=== PATIENT | male | born 1960 | race Caucasian/White ===

== ENCOUNTER → 2017-03-10 | Outpatient (CLI) | payer BC ==
[~2017-03-10] MED LIST: ACET-1256 PO; ASPEC81 PO; ASPI81TA28 PO; CRAN1TAB PO; GLC500 PO; IBUP-1050 PO; INSDGIPEN SQ; INSU100I2 SQ; LSN25 PO; METF-384 PO; MULTTAB58 PO; OMEG435C PO; ZLF/50 PO
[2017-03-10 13:12] LABS: ALT/SGPT 56 U/L (12-78); AST/SGOT 25 U/L (15-37); BLOOD UREA NITROGEN 20 mg/dl (7-18); CALCIUM 9.1 mg/dl (8.5-10.1); CARBON DIOXIDE 25 mmol/L (21-32); CHLORIDE 108 mmol/L (98-107); GLUCOSE 228 mg/dl (70-99); POTASSIUM 4.2 mmol/L (3.5-5.1); SODIUM 143 mmol/L (136-145)
[2017-03-10 13:18] LABS: ALKALINE PHOSPHATASE 105 U/L (45-117); CHOLESTEROL 217 mg/dl (0-200); CHOLESTEROL/HDL RATIO 5.3; HDL CHOLESTEROL 41 mg/dl; LDL CHOLESTEROL CALCULATED 128 mg/dl; PROSTATE SPECIFIC ANTIGEN 0.545 ng/ml (0.000-4.000); TRIGLYCERIDES 239 mg/dl (0-150); VERY LOW DENSITY LIPOPROT CALC 48 mg/dl
[2017-03-10 13:19] LABS: URINE APPEARANCE CLEAR (CLEAR); URINE BILIRUBIN NEG (NEG); URINE COLOR YELLOW; URINE EPITHELIAL CELL AUTO 0-5 /lpf (0-5); URINE NITRITE NEG (NEG); URINE SPECIFIC GRAVITY 1.036 (1.000-1.030); UROBILINOGEN NEG (NEG)
[2017-03-10 13:24] LABS: ESTIMATED AVERAGE GLUCOSE 229 mg/dl; HA1C FLAG Normal (Normal); MANUAL MICROSCOPIC REQUIRED? NO; REVIEW REQ? NO
[2017-03-10 13:40] LABS: RATIO 58.9 mcg/mg (0-30.0)
--- NOTE | 2017-03-14 12:57 | CODING QUERY MEDICAL NECESSITY ---
SUPPORTING DIAGNOSIS NEEDED A supporting diagnosis is required for the test/procedure performed on this patient in order for us to be reimbursed by the patient's insurance. Please provide a supporting diagnosis for the following test/procedure listed below next to the test name along with your signature. *If there is no additional diagnosis for this patient that would support the following test/procedure please document that below next to the test/procedure. Test(s)/Procedure(s) that require a supporting diagnosis: * PSA DIAGNOSIS: Provider Signature: Date: Thank you Flakita Emer[employer] Information Management Once completed, please kindly fax back to [phone] For questions please call [phone]
== END | disposition home or self-care (01) ==
LOC: C.LABBC 09:52
PROVIDERS: ATTEND Internal Medicine
DX: E11.9 Type 2 diabetes mellitus without complications (principal); K76.0 Fatty (change of) liver, not elsewhere classified; R39.9 Unspecified symptoms and signs involving the genitourinary system; E78.5 Hyperlipidemia, unspecified; Z12.5 Encounter for screening for malignant neoplasm of prostate

== ENCOUNTER → 2017-03-23 | Outpatient (CLI) | payer BC ==
[~2017-03-23] MED LIST changes: -ASPI81TA28 PO; -INSDGIPEN SQ; +INSU100I2 INJ; -INSU100I2 SQ; -LSN25 PO; -METF-384 PO; +OPTIRAY 320 IV PRN; -ZLF/50 PO
--- NOTE | 2017-03-23 17:01 | DIAGNOSTIC IMAGING REPORT ---
CT SCAN OF THE ABDOMEN AND PELVIS WITH IV CONTRAST CLINICAL HISTORY: Generalized abdominal pain. COMPARISON STUDY: Abdominal CT dated 10/29/2006. TECHNIQUE: Following the IV administration of 90 cc of Optiray 320, CT scan of the abdomen and pelvis is performed from the lung bases to the proximal femora. Images are reviewed in the axial, sagittal, and coronal planes. IV contrast was administered without complication. Automated dose control exposure was utilized. CT DOSE: 931.57 mGy.cm FINDINGS: Lung bases: The heart is top normal in size and without pericardial effusion. The lung bases are clear noting bibasilar atelectasis. There is a tiny hiatal hernia. Liver: The contrast-enhanced liver is top normal in size measuring 18 cm in length. The liver demonstrates diffusely diminished attenuation consistent with hepatic steatosis. There is no intrahepatic biliary ductal dilatation. The hepatic veins and portal veins are patent. Gallbladder: There are large calcified gallstones. There is no CT evidence of acute cholecystitis. Spleen: Normal in size and attenuation. Pancreas: Unremarkable. Adrenal glands: Unremarkable. Kidneys: The contrast enhanced kidneys are normal in size and without hydronephrosis. Numerous foci of cortical scarring are identified in the left kidney. The kidneys enhance symmetrically. A 1.5 cm exophytic cyst arises from the interpolar right kidney. Additional subcentimeter cortical hypodensities also likely represent cysts but are too small for definitive characterization. There is linear/irregular calcification identified in the upper pole the right kidney which measures up to 2.2 cm. This may be contained within a cyst or calyceal diverticulum. Abdominal vasculature: The abdominal aorta is normal in course and caliber. Bowel: The small bowel and colon are normal in course and caliber. There is mild colonic fecal retention. The appendix is well-visualized and normal. Peritoneum: There is no intraperitoneal free air or abdominal ascites. There is a fat-containing umbilical hernia. Foci of induration within the right abdominal wall may be related to subcutaneous injections. Lymphadenopathy: None. Pelvic viscera: The bladder, prostate, and seminal vesicles are normal as visualized. Surgical clips are noted along the spermatic cord bilaterally. Skeletal structures: No lytic or blastic lesions are seen. A hemangioma is noted in the body of L1. IMPRESSION: 1. There are no acute infectious or inflammatory findings in the abdomen or pelvis. 2. Hepatic steatosis. 3. Cholelithiasis without CT evidence of acute cholecystitis. 4. Multiple foci of cortical scarring are present in the left kidney. 5. A large irregular linear/branching calcification is identified in the upper pole of the right kidney. This may represent a nonobstructing kidney stone, and could be contained within a cyst/calyceal diverticulum. 6. Additional findings as above. Electronically signed by: Jhonatan Urrutia M.D. 03/23/2017 4:59 PM Dictated Date/Time: 03/23/2017 4:50 PM
== END | disposition home or self-care (01) ==
LOC: C.CTS 16:11
PROVIDERS: ATTEND Internal Medicine
DX: R10.9 Unspecified abdominal pain (principal)

== ENCOUNTER → 2017-03-31 | Outpatient (CLI) | payer BC ==
[~2017-03-31] MED LIST changes: -OPTIRAY 320 IV PRN
[2017-03-31 13:19] LABS: URINE APPEARANCE CLEAR (CLEAR); URINE BILIRUBIN NEG (NEG); URINE COLOR YELLOW; URINE NITRITE NEG (NEG); URINE PH 5.5 (4.5-7.5); URINE SPECIFIC GRAVITY 1.038 (1.000-1.030); UROBILINOGEN NEG (NEG)
[2017-03-31 13:22] LABS: MANUAL MICROSCOPIC REQUIRED? NO; REVIEW REQ? NO
== END | disposition home or self-care (01) ==
LOC: C.LABBC 10:14
PROVIDERS: ATTEND Internal Medicine
DX: R39.9 Unspecified symptoms and signs involving the genitourinary system (principal)

== ENCOUNTER → 2017-04-13 | Outpatient (CLI) | payer BC ==
--- NOTE | 2017-04-13 16:23 | DIAGNOSTIC IMAGING REPORT ---
RENAL ULTRASOUND CLINICAL HISTORY: Urinary symptom or sign. COMPARISON STUDY: CT of the abdomen and pelvis March 23, 2017. TECHNIQUE: Sonography of the kidneys and the urinary bladder was performed. FINDINGS: The right kidney measures 13.6 x 7.4 x 6.5 cm and the left measures 13.7 x 7.4 x 7.4 cm. There is no hydronephrosis. A 2 cm cyst is noted arising from the lower pole of the right kidney. Note is made of multifocal scarring within the left kidney. Echogenic foci with twinkle artifact within the upper pole of the left kidney correspond to the calcifications within a cyst or diverticulum shown on CT of March 23, 2017. The bladder is unremarkable. Both ureteral jets were identified. IMPRESSION: 1. No hydronephrosis. 2. Multifocal left renal scarring. 3. Calcifications within the upper pole of the left kidney which correspond to the calcifications within a cyst or calyceal diverticulum shown on CT of March 23, 2017. Electronically signed by: Suhas Nixon M.D. 04/13/2017 4:22 PM Dictated Date/Time: 04/13/2017 4:18 PM
== END | disposition home or self-care (01) ==
LOC: C.ULTR 15:41
PROVIDERS: ATTEND Internal Medicine
DX: R39.9 Unspecified symptoms and signs involving the genitourinary system (principal)

== ENCOUNTER 2017-08-20 22:56 | Emergency (ER) | payer BC ==
[~2017-08-20] VITALS: Ht 175.3 cm; Wt 105.9 kg
[~2017-08-20 22:56] MED LIST changes: -INSU100I2 INJ; +INSU100I2 SQ
[2017-08-20 22:57] VITALS: TEMP 36.5; Ht 175.3 cm; Wt 105.9 kg
[2017-08-20] MEDS ORDERED: KETOROLAC TROMETHAMINE 30 MG/ML VIAL IV STA (23:22)
[2017-08-20] MEDS ORDERED: SODIUM CHLORIDE 0.9% 1000ML 1,000 ML IV STA (23:22)
[2017-08-20] MEDS ORDERED: ONDANSETRON INJ 2 MG/ML 2 ML VIAL IV STA (23:22)
--- NOTE | 2017-08-20 23:39 | EMERGENCY ROOM VISIT NOTE ---
History Report prepared by Robinson: Vinayak Boss Under the Supervision of: Dr. Juan David Arrieta M.D. First contact with patient: 23:19 Chief Complaint: ABDOMINAL PAIN Stated Complaint: CHEST PAIN Nursing Triage Summary: Pt states he has felt ill all day, this evening developed increased abdominal pain that radiated into his chest with associated nausea. History of Present Illness The patient is a 57 year old male who presents to the Emergency Room with complaints of worsening abdominal pain for the past few days, though he has had similar pains for the past month. He currently rates his discomfort as a 5/10 in severity. The patient additionally is complaining of nausea and shortness of breath, though he denies any fevers, chills, cough, congestion, vomiting, and burning with urination. He states that he has seen his PCP, and he was instructed to follow up with a urologist, however he did not. He states that he has a history of a renal cyst, type 2 diabetes, and hypertension. He denies any history of prostate issues or any prostate symptoms such as weaker stream or frequency of urination. Additionally, the patient notes that he had hernia surgery recently. He states that he has had 2 bowel movements today, and they were normal without and any diarrhea, hematochezia, or melena. Source of History: patient Onset: few days ago Position: abdomen Symptom Intensity: 5/10 Timing: worsening Associated Symptoms: + SOB, + nausea, No fevers, No chills, No vomiting, No melena, No hematochezia, No diarrhea, No urinary symptoms Review of Systems See HPI for pertinent positives and negatives. A total of ten systems were reviewed and were otherwise negative. Past Medical & Surgical Medical Problems: (1) Diabetes (2) HTN (hypertension) (3) Kidney disease Family History Cancer Diabetes mellitus Gallbladder disease Heart disease Hypertension Kidney disease Kidney stones Social History Smoking Status: Never Smoker Alcohol Use: none Marital Status: Occupation Status: employed Current/Historical Medications Scheduled Aspirin (Aspirin Ec), 81 MG PO DAILY Cranberry (Vaccinium Macrocarp (Cranberry), 125 MG PO DAILY Insulin Glargine (Lantus Solostar), 20 UNITS SQ QAM Insulin Lispro (Human) (Humalog Kwikpen), 8 UNITS SQ AMHS Lisinopril (Lisinopril), 1 TAB PO QAM Metformin Hcl (Glucophage), 1,000 MG PO BID Multiple Vitamin (Multivitamin), 1 TAB PO DAILY [place]-3 Fatty Acids (Fish Oil Concentrate), 3 CAP PO BID Sertraline HCl (Sertraline HCl), 25 MG PO HS Allergies Coded Allergies: Peanut (Verified Allergy, Unknown, lethargic, GI upset, 08/21/17) Physical Exam Vital Signs Date Time Temp Pulse Resp B/P (MAP) Pulse Ox O2 Delivery O2 Flow Rate FiO2 08/21/17 03:51 78 18 136/87 97 08/21/17 03:35 65 08/21/17 01:06 65 18 137/78 98 Room Air 08/21/17 00:11 66 18 139/74 98 Room Air 08/20/17 23:12 61 08/20/17 22:57 36.5 77 18 171/103 93 Room Air Physical Exam GENERAL: Awake, alert, well-appearing, in no distress HENT: Normocephalic, atraumatic. Oropharynx unremarkable. EYES: Normal conjunctiva. Sclera non-icteric. NECK: Supple. No nuchal rigidity. FROM. No JVD. RESPIRATORY: Clear to auscultation. CARDIAC: Regular rate, normal rhythm. Extremities warm and well perfused. Pulses equal. ABDOMEN: Mild suprapubic tenderness to palpation. No peritoneal signs. Soft, non -distended. No rebound or guarding. No masses. RECTAL: Deferred. MUSCULOSKELETAL: Chest examination reveals no tenderness. The back is symmetrical on inspection without obvious abnormality. There is no CVA tenderness to palpation. No joint edema. LOWER EXTREMITIES: Calves are equal size bilaterally and non-tender. No edema. No discoloration. NEURO: Normal sensorium. No sensory or motor deficits noted. SKIN: No rash or jaundice noted. Medical Decision & Procedures ER Provider Diagnostic Interpretation: Radiology results as stated below per my review and radiologist interpretation: CT ABDOMEN & PELVIS With Contrast: Comparison: CT Abdomen and pelvis 03/23/17. No evidence of acute or inflammatory process in the abdomen or pelvis. Liver, spleen, pancreas, and adrenal glands are unremarkable. Cholelithiasis without evidence of acute cholecystitis. Left kidney cortical scarring and nonobstructing stones. Right kidney cyst. No hydronephrosis. No bowel obstruction, appendicitis, or diverticulitis. Urinary bladder and prostate are unremarkable. No acute osseous findings. Radiologist: Hernando Blevins MD X-ray: Per my interpretation: Chest One View: Normal mediastinum and no gross infiltrates. Laboratory Results 08/20/17 23:10 Red Blood Count 5.13, Mean Corpuscular Volume 88.1, Mean Corpuscular Hemoglobin 32.7, Mean Corpuscular Hemoglobin Concent 37.2, Mean Platelet Volume 10.7, Neutrophils (%) (Auto) 43.6, Lymphocytes (%) (Auto) 43.5, Monocytes (%) (Auto) 10.0, Eosinophils (%) (Auto) 1.9, Basophils (%) (Auto) 0.7, Neutrophils # (Auto ) 2.93, Lymphocytes # (Auto) 2.92, Monocytes # (Auto) 0.67, Eosinophils # (Auto ) 0.13, Basophils # (Auto) 0.05 08/20/17 23:10 Test 08/20/17 23:10 08/21/17 01:00 White Blood Count 6.72 K/uL (4.8-10.8) Red Blood Count 5.13 M/uL (4.7-6.1) Hemoglobin 16.8 g/dL (14.0-18.0) Hematocrit 45.2 % (42-52) Mean Corpuscular Volume 88.1 fL (80-100) Mean Corpuscular Hemoglobin 32.7 pg (25-34) Mean Corpuscular Hemoglobin Concent 37.2 g/dl (32-36) Platelet Count 195 K/uL (130-400) Mean Platelet Volume 10.7 fL (7.4-10.4) Neutrophils (%) (Auto) 43.6 % Lymphocytes (%) (Auto) 43.5 % Monocytes (%) (Auto) 10.0 % Eosinophils (%) (Auto) 1.9 % Basophils (%) (Auto) 0.7 % Neutrophils # (Auto) 2.93 K/uL (1.4-6.5) Lymphocytes # (Auto) 2.92 K/uL (1.2-3.4) Monocytes # (Auto) 0.67 K/uL (0.11-0.59) Eosinophils # (Auto) 0.13 K/uL (0-0.5) Basophils # (Auto) 0.05 K/uL (0-0.2) RDW Standard Deviation 39.6 fL (36.4-46.3) RDW Coefficient of Variation 12.4 % (11.5-14.5) Immature Granulocyte % (Auto) 0.3 % Immature Granulocyte # (Auto) 0.02 K/uL (0.00-0.02) Anion Gap 8.0 mmol/L (3-11) Est Creatinine Clear Calc Drug Dose 66.0 ml/min Estimated GFR () 59.5 Estimated GFR (Non- 51.3 BUN/Creatinine Ratio 12.3 (10-20) Calcium Level 8.9 mg/dl (8.5-10.1) Total Bilirubin 0.7 mg/dl (0.2-1) Direct Bilirubin 0.1 mg/dl (0-0.2) Aspartate Amino Transf (AST/SGOT) 27 U/L (15-37) Alanine Aminotransferase (ALT/SGPT) 50 U/L (12-78) Alkaline Phosphatase 118 U/L (45-117) Troponin I < 0.015 ng/ml (0-0.045) Total Protein 7.4 gm/dl (6.4-8.2) Albumin 3.9 gm/dl (3.4-5.0) Lipase 177 U/L (73-393) Chemistry Specimen Hemolysis Urine Color YELLOW Urine Appearance CLEAR (CLEAR) Urine pH 5.5 (4.5-7.5) Urine Specific [place] 1.022 (1.000-1.030) Urine Protein NEG (NEG) Urine Glucose (UA) 2+ (NEG) Urine Ketones TRACE (NEG) Urine Occult Blood NEG (NEG) Urine Nitrite NEG (NEG) Urine Bilirubin NEG (NEG) Urine Urobilinogen NEG (NEG) Urine Leukocyte Esterase NEG (NEG) Laboratory results reviewed by me Medications Administered Medications (Trade) Dose Ordered Sig/Kalee Route Start Time Stop Time Status Last Admin Dose Admin Sodium Chloride 1,000 ml @ 999 mls/hr Q1H1M STAT IV 08/20/17 23:22 08/21/17 00:22 DC 08/20/17 23:37 999 MLS/HR Ondansetron HCl (Zofran Inj) 4 mg NOW STAT IV 08/20/17 23:22 08/20/17 23:27 DC 08/20/17 23:36 4 MG Ketorolac Tromethamine (Toradol Inj) 30 mg NOW STAT IV 08/20/17 23:22 08/20/17 23:27 DC 08/20/17 23:37 30 MG ECG Indication: abdominal pain Rate (beats per minute): 66 Rhythm: normal sinus Findings: no acute ischemic change, other (normal axis) ED Course 2319: The patient was evaluated in room B11. A complete history and physical exam was performed. 0329: I reevaluated the patient. Discussed results and discharge instructions: He verbalized understanding and agreement. The patient is ready for discharge. Medical Decision I reviewed the patient's past medical history, medications, and the nursing notes as described above. Differential diagnoses include: UTI, pyelonephritis, uretal stone, gastroenteritis, diverticulitis, obstruction, AAA, and ACS The patient is a 57-year-old gentleman presents to emergency department with lower abdominal pain that has been ongoing for the past month but feels that it is worsening over the past week with associated nausea per history of present illness. Arrival the patient is relatively well-appearing, no acute distress, afebrile stable vital signs. He is mild suprapubic tenderness but no peritoneal signs. Labs are unremarkable including WBC within normal limits. LFTs unremarkable. UA negative. CT the abdomen and pelvis shows nonobstructing renal stones otherwise unremarkable. When questioned further the patient reports that the symptoms actually have been ongoing for the past 4 years since his hernia repair. Therefore it is possible that the patient's symptoms may be due to neuropathy related to remote history of hernia repair. Otherwise, emergent process unlikely at this time given reassuring w/u. Findings and plan for follow -up reviewed with patient. Patient agreeable and d/c'd per discharge instructions. Medication Reconcilliation Current Medication List: was personally reviewed by me Blood Pressure Screening Patient's blood pressure: Normal blood pressure Impression Primary Impression: Abdominal pain Scribe Attestation The scribe's documentation has been prepared under my direction and personally reviewed by me in its entirety. I confirm that the note above accurately reflects all work, treatment, procedures, and medical decision making performed by me. Departure Information Dispostion Home / Self-Care Referrals Frantz Sanchez M.D. (PCP) Forms Call Back Authorization, HOME CARE DOCUMENTATION FORM, IMPORTANT VISIT INFORMATION Patient Instructions Abdominal Pain, My [facility] Additional Instructions Please follow up with your primary care physician in the next 1-3 days for re- evaluation. The cause of your symptoms is unclear but may be related nerve effects from your prior hernia repair. Your CT scan did show some kidney stones but they were non-obstructing and unlikely to explain your symptoms. Otherwise, your exam, EKG, chest xray, CT scan of your abdomen, and lab results did not show signs of an emergent condition at this time. Acetaminophen and Ibuprofen for pain as needed. Heating pad for additional pain relief. Return to the emergency department for worsening symptoms as described in the accompanying instructions.
[2017-08-20 23:42] LABS: BASO % 0.7 %; BASO ABS # 0.05 K/uL (0-0.2); COMPLETE YES; EOS % 1.9 %; HEMATOCRIT 45.2 % (42-52); IG% 0.3 %; LYMPH % 43.5 %; LYMPH ABS # 2.92 K/uL (1.2-3.4); MEAN CELL VOLUME 88.1 fL (80-100); MEAN CORPUSCULAR HEMOGLOBIN 32.7 pg (25-34); MEAN CORPUSCULAR HGB CONC 37.2 g/dl (32-36); MEAN PLATELET VOLUME 10.7 fL (7.4-10.4); NEUT % 43.6 %; PLATELET COUNT 195 K/uL (130-400); RED BLOOD COUNT 5.13 M/uL (4.7-6.1); WHITE BLOOD COUNT 6.72 K/uL (4.8-10.8)
[2017-08-21 00:21] LABS: ALKALINE PHOSPHATASE 118 U/L (45-117); ALT/SGPT 50 U/L (12-78); AST/SGOT 27 U/L (15-37); BLOOD UREA NITROGEN 18 mg/dl (7-18); BUN/CREATININE RATIO 12.3 (10-20); CALCIUM 8.9 mg/dl (8.5-10.1); CARBON DIOXIDE 28 mmol/L (21-32); CHLORIDE 101 mmol/L (98-107); GLUCOSE 182 mg/dl (70-99); POTASSIUM 3.8 mmol/L (3.5-5.1); SODIUM 137 mmol/L (136-145)
[2017-08-21 01:13] LABS: URINE APPEARANCE CLEAR (CLEAR); URINE BILIRUBIN NEG (NEG); URINE COLOR YELLOW; URINE NITRITE NEG (NEG); URINE PH 5.5 (4.5-7.5); URINE SPECIFIC GRAVITY 1.022 (1.000-1.030); UROBILINOGEN NEG (NEG); ZZUR CULT IF INDIC CLEAN CATCH NO
[2017-08-21 01:15] LABS: MANUAL MICROSCOPIC REQUIRED? NO; REVIEW REQ? NO
[2017-08-21] MEDS ORDERED: ASPI81TA28 PO (01:32)
[2017-08-21] MEDS ORDERED: METF-384 PO (01:34)
[2017-08-21] MEDS ORDERED: ZLF/50 PO (01:34)
[2017-08-21] MEDS ORDERED: INSDGIPEN SQ (01:34)
[2017-08-21] MEDS ORDERED: LSN25 PO (01:36)
[2017-08-21] MEDS ORDERED: OPTIRAY 320 IV PRN (01:45)
[2017-08-21 03:51] VITALS: BP 136/87; PULSE 78; O2SAT 97
--- NOTE | 2017-08-21 08:02 | DIAGNOSTIC IMAGING REPORT ---
CT SCAN OF THE ABDOMEN AND PELVIS WITH IV CONTRAST CLINICAL HISTORY: Lower abdominal pain. Nausea. COMPARISON STUDY: Abdominal CT dated 03/23/2017 and 10/29/2006. TECHNIQUE: Following the IV administration of 119 cc of Optiray 320, CT scan of the abdomen and pelvis is performed from the lung bases to the proximal femora. Images are reviewed in the axial, sagittal, and coronal planes. IV contrast was administered without complication. Automated dose control exposure was utilized. CT DOSE: 902.03 mGy.cm FINDINGS: Lung bases: The heart is top normal in size and without pericardial effusion. The lung bases are clear noting bibasilar atelectasis. There is a tiny hiatal hernia. Liver: The contrast-enhanced liver is top normal in size measuring 18.2 cm in length. The liver demonstrates diffusely diminished attenuation consistent with hepatic steatosis. Fatty sparing is seen adjacent to the gallbladder fossa. There is no intrahepatic biliary ductal dilatation. The hepatic veins and portal veins are patent. Gallbladder: There are large calcified gallstones. There is no CT evidence of acute cholecystitis. Spleen: Normal in size and attenuation. Pancreas: Unremarkable. Adrenal glands: Unremarkable. Kidneys: The contrast enhanced kidneys are normal in size and without hydronephrosis. Numerous foci of cortical scarring are identified in the left kidney. The kidneys enhance symmetrically. A 1.5 cm exophytic cyst arises from the interpolar right kidney. Additional subcentimeter cortical hypodensities also likely represent cysts but are too small for definitive characterization. There are calcifications present in the upper pole of the right kidney which measures up to 2.2 cm. These may be contained within a cyst or calyceal diverticulum. Abdominal vasculature: The abdominal aorta is normal in course and caliber noting scattered foci of atherosclerotic calcification. Bowel: The small bowel and colon are normal in course and caliber. There is mild colonic fecal retention. The appendix is well-visualized and normal. Peritoneum: There is no intraperitoneal free air or abdominal ascites. There is a fat-containing umbilical hernia. Foci of induration within the right abdominal wall may be related to subcutaneous injections. Lymphadenopathy: None. Pelvic viscera: The bladder, prostate, and seminal vesicles are normal as visualized. Surgical clips are noted along the spermatic cord bilaterally. Skeletal structures: No lytic or blastic lesions are seen. A hemangioma is noted in the body of L1. IMPRESSION: 1. There are no acute infectious or inflammatory findings in the abdomen or pelvis. 2. Hepatic steatosis. 3. Cholelithiasis without CT evidence of acute cholecystitis. 4. Multiple foci of cortical scarring are again noted in the left kidney. 5. Upper pole calcifications in the left kidney may represent nonobstructing kidney stones or could be contained within a cyst/calyceal diverticulum. 6. Additional findings as above. Electronically signed by: Jhonatan Urrutia M.D. 08/21/2017 8:01 AM Dictated Date/Time: 08/21/2017 7:54 AM
--- NOTE | 2017-08-21 08:13 | DIAGNOSTIC IMAGING REPORT ---
CHEST ONE VIEW PORTABLE HISTORY: Generalized abdominal pain. COMPARISON: Chest 02/25/2016. FINDINGS: The lungs are clear. Cardiac silhouette is normal in size. No pleural effusions. No pneumothorax. IMPRESSION: No acute process. Electronically signed by: Derrick Welsh M.D. 08/21/2017 8:11 AM Dictated Date/Time: 08/21/2017 8:10 AM
== END 2017-08-21 03:52 | disposition home or self-care (01) ==
LOC: C.EDB 22:56
DX: R10.30 Lower abdominal pain, unspecified (principal); Z98.890 Other specified postprocedural states; E11.9 Type 2 diabetes mellitus without complications; I10 Essential (primary) hypertension; N28.9 Disorder of kidney and ureter, unspecified; Z79.82 Long term (current) use of aspirin; Z79.4 Long term (current) use of insulin; Z83.3 Family history of diabetes mellitus; Z83.79 Family history of other diseases of the digestive system; Z82.49 Family history of ischemic heart disease and other diseases of the circulatory system; Z84.1 Family history of disorders of kidney and ureter

== ENCOUNTER → 2018-01-19 | Outpatient (CLI) | payer BC ==
[~2018-01-19] MED LIST changes: -ACET-1256 PO; -ASPEC81 PO; +ASPI81TA28 PO; -GLC500 PO; -IBUP-1050 PO; +INSDGIPEN SQ; +LSN25 PO; +METF-384 PO; +ZLF/50 PO
[2018-01-19 13:13] LABS: HEMOGLOBIN 17.9 g/dL (14.0-18.0); MEAN CELL VOLUME 88.6 fL (80-100); MEAN CORPUSCULAR HGB CONC 37.3 g/dl (32-36); MEAN PLATELET VOLUME 10.3 fL (7.4-10.4); PLATELET COUNT 203 K/uL (130-400); RED CELL DISTRIBUTION WIDTH CV 12.6 % (11.5-14.5); RED CELL DISTRIBUTION WIDTH SD 40.2 fL (36.4-46.3); WHITE BLOOD COUNT 5.51 K/uL (4.8-10.8)
[2018-01-19 13:24] LABS: ALBUMIN 4.1 gm/dl (3.4-5.0); ALT/SGPT 50 U/L (12-78); AST/SGOT 26 U/L (15-37); BLOOD UREA NITROGEN 14 mg/dl (7-18); CALCIUM 9.2 mg/dl (8.5-10.1); CARBON DIOXIDE 27 mmol/L (21-32); CHOLESTEROL 244 mg/dl (0-200); CREATININE 1.11 mg/dl (0.60-1.40); GLUCOSE 302 mg/dl (70-99); SODIUM 139 mmol/L (136-145)
[2018-01-19 13:29] LABS: ALKALINE PHOSPHATASE 122 U/L (45-117); TOTAL PROTEIN 7.9 gm/dl (6.4-8.2)
[2018-01-19 14:03] LABS: ALT/SGPT 52 U/L (12-78); AST/SGOT 26 U/L (15-37)
[2018-01-21 06:26] LABS: HEMOGLOBIN A1C 10.5 % (4.5-5.6)
== END | disposition home or self-care (01) ==
LOC: C.LAB1850 11:05
PROVIDERS: ATTEND Internal Medicine
DX: E11.9 Type 2 diabetes mellitus without complications (principal); E78.5 Hyperlipidemia, unspecified; R10.9 Unspecified abdominal pain; I10 Essential (primary) hypertension

== ENCOUNTER → 2018-01-30 | Outpatient (CLI) | payer BC ==
--- NOTE | 2018-01-30 08:05 | DIAGNOSTIC IMAGING REPORT ---
(TESTICULAR) SCROTUM-CONT CLINICAL HISTORY: 57 years-old Male with R10.9 Abdominal [id number]. Acute scrotal pain COMPARISON STUDY: CT abdomen and pelvis 08/21/2017 TECHNIQUE: Real-time, grayscale, and color Doppler sonography of the testes and scrotum is performed. Images are reviewed in the transverse and longitudinal planes. FINDINGS: RIGHT HEMISCROTUM: The right testis measures 4.8 x 2.5 x 3.0 cm and the parenchyma appears unremarkable. No intratesticular mass is seen. Normal-appearing arterial inflow is present within the right testicle. Small right epididymal head cyst, 0.3 cm. No varicocele or hydrocele is identified. LEFT HEMISCROTUM: The left testis measures 4.3 x 4.0 x 3.0 cm. 0.5 cm hypoechoic lesion of the inferior left testicle without internal flow suggests cyst. Normal-appearing arterial inflow is present within the left testicle. The left epididymal head appears normal. No varicocele or hydrocele is identified. IMPRESSION: 1. 0.5 cm hypoechoic avascular lesion of the inferior left testicle suggests testicular cyst. No suspicious testicular mass lesions or other focal abnormality of the testicles identified. 2. 0.3 cm right epididymal head cyst. 3. No hydrocele or varicocele identified. The above report was generated using voice recognition software. It may contain grammatical, syntax or spelling errors. Electronically signed by: Salvador Sanchez M.D. 01/30/2018 8:04 AM Dictated Date/Time: 01/30/2018 8:01 AM
--- NOTE | 2018-01-30 08:14 | DIAGNOSTIC IMAGING REPORT ---
ABDOMEN ULTRASOUND FOR HERNIA CLINICAL HISTORY: HX OF HERNIA REPAIR. Generalized abdominal pain. COMPARISON STUDY: Abdomen and pelvis CT 08/21/2017. FINDINGS: No hernia is identified within the right or left lower quadrants. There is a fat-containing umbilical hernia. The neck of the hernia measures 0.6 cm. The hernia sac measures 3.7 x 0.9 cm. No bowel identified within the hernia. The hernia is not reducible. IMPRESSION: Fat-containing nonreducible umbilical hernia as described above. Electronically signed by: Derrick Welsh M.D. 01/30/2018 8:13 AM Dictated Date/Time: 01/30/2018 8:10 AM
== END | disposition home or self-care (01) ==
LOC: C.ULTR 07:16
PROVIDERS: ATTEND Internal Medicine
DX: R10.9 Unspecified abdominal pain (principal); K42.9 Umbilical hernia without obstruction or gangrene; N50.9 Disorder of male genital organs, unspecified; N50.3 Cyst of epididymis

== ENCOUNTER 2022-05-18 16:00 | Inpatient (IN) ==
--- NOTE | 2022-05-18 16:44 | ED Triage Note ---
Date of Service May 18, 2022 History of Present Illness This patient was briefly evaluated while in triage. An abbreviated physical exam was performed. This patient is a 62-year-old Male with past medical history of DM2 who presents to the ED for evaluation of mid abdominal pain with nausea, vomiting and diarrhea which has been intermittent over the past week. Patient states he was feeling a bit better yesterday but woke up with symptoms again at 0200 this morning which have been persistent since that time. Currently, he rates his discomfort as a 6/10. He did take antacids without relief. Patient states that he has felt sweaty but has not taken his temperature. He also states that he feels weak. He denies chest pain, respiratory difficulties, palpitations. No urinary symptoms. He denies eating anything abnormal. He has not been around anyone else with similar symptoms. No other acute complaints. PHYSICAL EXAM: VITALS: Vitals are noted on the nurse's note and reviewed by myself. Hypotensive and tachycardic General: Resting in bed, no acute distress HEENT: Normocephalic, PERRL, EOMI, mucous membranes moist, oropharynx clear Resp: Good inspiratory effort on room air, lung sounds clear bilaterally CV: Tachycardic rate, regular rhythm, peripheral pulses palpated Back: No CVA or flank tenderness to palpation Abd: Soft, non-distended, non-tender to palpation. No rebound, guarding or rigidity MSK: Moving all extremities without apparent pain or difficulty Neuro: Awake, alert and oriented x 3, interacting and answering questions appropriately Physical Exam Initial orders for labs and / or imaging were placed and patient was placed in the waiting area until a bed is available. Please see further documentation for the full ED course.
[2022-05-18] MEDS ORDERED: SODIUM CHLORIDE 0.9% 1000ML 1,000 ML IV SCH ×2 (16:50→18:00)
[2022-05-18] MEDS ORDERED: SODIUM CHLORIDE 0.9% 1000ML 1,000 ML IV ONE (17:02)
[2022-05-18] MEDS ORDERED: ONDANSETRON INJ 2 MG/ML 2 ML VIAL IV STA (17:02)
[2022-05-18 17:30] LABS: Basophils # (auto) 0.05 K/uL (0-0.2); Basophils % (auto) 0.5 %; Eosinophils # (auto) 0.17 K/uL (0-0.50); Eosinophils % (auto) 1.7 %; Hematocrit (blood only) 61.7 % (40.1-51.0); Hemoglobin 21.3 g/dl (14.0-18.0); Immature Granulocytes # (auto) 0.02 K/uL (0.00-0.02); Immature Granulocytes % (auto) 0.2 %; Lymphocytes # (auto) 0.64 K/uL (1.2-3.4); Lymphocytes % (auto) 6.5 %; Mean Corpuscular Hemoglobin 32.5 pg (25.0-34.0); Mean Corpuscular Hgb Conc 35.5 g/dL (32.0-36.0); Mean Corpuscular Volume 91.5 fL (80.0-100.0); Mean Platelet Volume 11.2 fL (9.4-12.4); Monocytes # (auto) 0.77 K/uL (0.24-0.82); Monocytes % (auto) 7.8 %; Neutrophils # (auto) 8.18 K/uL (1.4-6.5); Neutrophils % (auto) 83.3 %; Platelet Count 289 K/uL (130-400); RDW Coefficient of Variation 13.1 % (11.5-14.5); RDW Standard Deviation 42.2 fL (36.4-46.3); Red Blood Count 6.74 M/uL (4.63-6.08); White Blood Count 9.83 K/ul (4.8-10.8)
[2022-05-18 17:41] LABS: Albumin Globulin Ratio 1.3 (0.9-2); Albumin Level 4.5 gm/dl (3.4-5.0); BUN Creatinine Ratio 13.9 (10-20); Bilirubin,Total 1.2 mg/dl (0.2-1.0); Creatinine Clr Calc Pharmacy 42.8 ml/min; Est GFR (African American) 38.7 ml/min; Est GFR (Non-African American) 33.4 ml/min; Globulin 3.4 gm/dl (2.5-4.0); Potassium 4.8 mmol/L (3.5-5.1); Total Protein 7.9 gm/dl (6.0-8.3)
--- NOTE | 2022-05-18 17:57 | Emergency Department Note ---
History of Present Illness General Chief complaint: Vomiting Stated complaint: VOMITING, DIARHHEA Time Seen by Provider: 05/18/22 17:02 History of Present Illness Provider Complaint: + nausea, + vomiting and + diarrhea Onset (ago): week(s) 1 Description of Vomiting: no bilious, no blood-streaked or no coffee grounds Description of Diarrhea: no blood-streaked, no bloody (bright red) or no bloody (dark red) Associated Abdominal Pain: Yes Location of pain: + diffuse Severity: moderate Maximum Pain Intensity: 6 Current Pain Intensity: 6 Quality: + cramping (occurs when vomitting) Pain Consistency: + intermittent Relieved By: + none Exacerbated By: + vomiting Context: no foreign travel, no possible food poisoning, no recent antibiotic use, no history of abdominal surgery, no alcohol abuse, no trauma, no anticoagulant use or no marijuana use Associated symptoms: no myalgias, no chest pain, no cough, no diaphoresis, no fever/chills, no headaches, no malaise, no dysuria, no syncope, no weakness, no anxiety, no numbness or no palpitation Home Medications Medication Instructions Recorded Confirmed Type cranberry fruit concentrate 250 mg 250 mg PO QAM 04/23/19 05/18/22 History chewable tablet (Azo Cranberry) multivitamin with iron 1 tab PO QAM 04/23/19 05/18/22 History omega-3 fatty acids 1,000 mg 1,000 mg PO QAM 10/18/19 05/18/22 History capsule (Fish Oil Concentrate) pen needle, diabetic 31 gauge x #300 ea 03/16/21 05/12/22 Rx 3/16" (BD Ultra-Fine Mini Pen Needle) losartan 50 mg tablet 25 mg PO QAM #45 tabs 11/03/21 05/18/22 Rx fluticasone propionate 50 2 spray intranasal QAM #16 grams 11/24/21 05/18/22 Rx mcg/actuation nasal spray,suspension ipratropium bromide 21 mcg (0.03 2 spray intranasal QAM #30 mL 11/24/21 05/18/22 Rx %) nasal spray rosuvastatin 10 mg tablet (Crestor) 10 mg PO DAILY #90 tabs 01/06/22 05/18/22 Rx aspirin 81 mg tablet,delayed 81 mg PO DAILY 05/18/22 05/18/22 History release insulin glargine-yfgn 100 unit/mL 0 unit subcut QAM 05/18/22 05/18/22 History (3 mL) subcutaneous pen (Semglee (insulin glargine-yfgn) Pen) Allergies Allergy/AdvReac Type Severity Reaction Status Date / Time peanut Allergy Unknown lethargic, Verified 05/18/22 18:18 GI upset pollen Allergy Unknown Unknown Uncoded 05/18/22 18:18 GENERAL ANESTHESIA AdvReac Intermediate Vomiting Uncoded 05/18/22 18:30 Past Med/Surg History Medical History Anxiety DM type 2 (diabetes mellitus, type 2) Fatty liver disease, nonalcoholic Hyperlipidemia Obesity Osteoarthritis PONV (postoperative nausea and vomiting) Renal cyst Surgical History H/O inguinal hernia repair H/O sinus surgery x2 H/O umbilical hernia repair x2 H/O vasectomy History of ankle surgery right History of colonoscopy History of cystoscopy Family History Father Coronary arteriosclerosis Diabetes Gallbladder disease Hypertension Myocardial infarction Heart disease Unknown Coronary arteriosclerosis Gallbladder disease Myocardial infarction Breast cancer Kidney stones Sister Gallbladder disease Breast cancer Kidney stones Mother Breast cancer Cancer Brother Kidney stones Other No family history of bleeding disorder Denies family history of Ovarian cancer Prostate cancer Hearing loss Colorectal cancer Stroke Asthma Social History Smoking Status: Never smoker Second Hand Exposure: No; Hx Alcohol Use: Yes Alcohol type: beer and wine Alcohol Intake Frequency: Monthly or Less Hx Substance Use: No Preferred Language: Slovenian Communication Ability: Effective Visual Impairment: No Limitations Hearing Ability: Normal Practice Assistant Required: No Beliefs That Will Affect Care: None marital status: Current Living Situation: Significant Other current occupational status: retired current occupation: customer operations intern (utility work) Feels Safe at Home: Yes Childhood Exposure to Second-Hand Smoke: No Physical Activity Frequency: 5-6 Times per Week Seatbelt Use: always Assistive Devices: Glasses Review of Systems A total of 10 systems reviewed and were otherwise negative Physical Exam Vital Signs: Vital Signs - 24 hr 05/18/22 16:36 05/18/22 16:58 05/18/22 17:12 Temperature 36.4 C L Temperature Source Temporal Artery Sc an Pulse Rate 118 H Pulse Rate [Apical ] 105 H Pulse Rhythm [Apic al] Respiratory Rate 18 18 Respiratory Effort / Characteristics Non-Labored Non-Labored Sponta neous Respiratory Depth Normal Normal Blood Pressure 83/31 L Blood Pressure [Le ft Arm] 92/67 L 113/73 Blood Pressure Liset n 48 Blood Pressure Liset n [Left Arm] 75 86 Blood Pressure Pos ition [Left Arm] Lying Lying Pulse Oximetry 95 96 Oxygen Delivery Me thod Room Air Room Air Sepsis New/Unexpla ined Change in Men rajan Status No Sepsis Action Take n by Nursing Adv Provider Notif ied 05/18/22 17:57 05/18/22 19:04 05/18/22 19:57 Temperature Temperature Source Pulse Rate Pulse Rate [Apical ] 96 H 90 102 H Pulse Rhythm [Apic al] Regular Respiratory Rate 18 16 23 Respiratory Effort / Characteristics Non-Labored Sponta neous Non-Labored Non-Labored Respiratory Depth Normal Normal Normal Blood Pressure Blood Pressure [Le ft Arm] 122/78 130/75 137/77 Blood Pressure Liset n Blood Pressure Liset n [Left Arm] 92 93 97 Blood Pressure Pos ition [Left Arm] Lying Pulse Oximetry 93 97 98 Oxygen Delivery Me thod Room Air Room Air Room Air Sepsis New/Unexpla ined Change in Men rajan Status Sepsis Action Take n by Nursing Physical Exam: Physical Exam GENERAL: He is oriented to person, place, and time. He appears well-developed and well-nourished. He does not appear distressed. HENT: Exam performed. - Head: Normocephalic and atraumatic. - Right Ear: External ear normal. No mastoid tenderness. - Left Ear: External ear normal. No mastoid tenderness. - Mouth/Throat: The oropharynx is clear and moist. No trismus in the jaw. No dental abscesses or uvula swelling. No oropharyngeal exudate or tonsillar abscesses. EYES: Conjunctivae and EOM are normal. Pupils are equal, round, and reactive to light. Right eye exhibits no discharge. Left eye exhibits no discharge. No scleral icterus. NECK: Normal range of motion. Neck supple. No JVD present. No spinous process tenderness present. No carotid bruit present. No rigidity. No tracheal deviation and normal range of motion present. No Brudzinski's sign and no Kernig's sign noted. CV: Normal rate, regular rhythm, normal heart sounds and intact distal pulses. There is no peripheral edema. Palpable radial pulses bue. PULM/CHEST: Effort normal and breath sounds normal. No respiratory distress. No stridor. He has no wheezes. He has no rales. - Chest Wall: He exhibits no tenderness. ABD: The abdomen is soft. Bowel sounds are normal. He has no distension. No mass is present. There is no tenderness. There is no rebound, no guarding, no Buckley's sign and no tenderness at McBurney's point. Rovsig negative. MUSC/SKEL: Normal range of motion. There is no peripheral edema, tenderness or deformity. LYMPH: No cervical adenopathy. NEURO: He is alert and oriented to person, place, and time. He has normal strength. No cranial nerve deficit or sensory deficit. Coordination and gait normal. GCS eye subscore is 4. GCS verbal subscore is 5. GCS motor subscore is 6. Cerebellar tests wnl. SKIN: Skin is warm and dry. He is not diaphoretic. PSYCH: He has a normal mood and affect. Behavior is normal. Judgment and thought content normal. Course Course 1702: The patient was evaluated in room A10. A complete history and physical exam was performed Cardiac monitoring: An order was placed for continuous cardiac monitoring. The monitor shows a rate of 100 with sinus rhythm 1756: Vital signs stable. Labs show hemoglobin of 21.3. Creatinine 2.08. The patient's glucose is 416 and there is an anion gap of 15. The patient's lab abnormalities are thought to be due to the patient's dehydration from vomiting and diarrhea so much. COVID-negative. Stool culture is pending. We will adequately hydrate the patient with 2 L IV fluids as this is thought to be due to dehydration. Plan on patient will be admitted to the [facility] Hospitalist team Dr. Hadrin team has been notified. Patient will be held off insulin drip at this time given we think that his labs will improve with IV hydration. Administered Medications Insulin Human Regular 250 (units/ Sodium Chloride) 250 mls @ 9.6 mls/hr IV .Q24H [facility]; Protocol Stop: 06/17/22 20:44 Last Admin: 05/18/22 21:57 Dose: 9.6 units/hr, 9.6 mls/hr Documented By: MYRIAM Co-signed By: KITTY Parenteral Electrolytes (Normosol-R) 1,000 mls @ 80 mls/hr IV .[id number] NIKOLAY Stop: 06/17/22 20:14 Last Admin: 05/18/22 21:58 Dose: 80 mls/hr Documented By: MYRIAM Discontinued Medications Sodium Chloride (Nss 1000ml) 1,000 mls @ 999 mls/hr IV .[id number] NIKOLAY Stop: 05/18/22 17:50 Last Infusion: 05/18/22 17:59 Dose: 0 mls/hr Documented By: CARLOS MANUEL Admin: 05/18/22 16:58 Dose: 999 mls/hr Documented By: CARLOS MANUEL Sodium Chloride (Nss 1000ml) 1,000 mls @ 999 mls/hr IV .Q1H1M ONE Stop: 05/18/22 18:02 Last Infusion: 05/18/22 18:33 Dose: 0 mls/hr Documented By: CARLOS MANUEL Admin: 05/18/22 17:16 Dose: 999 mls/hr Documented By: CARLOS MANUEL Sodium Chloride (Nss 1000ml) 1,000 mls @ 80 mls/hr IV .[id number] NIKOLAY Stop: 06/17/22 17:59 Last Admin: 05/18/22 18:02 Dose: 80 mls/hr Documented By: CARLOS MANUEL Insulin Human Regular (Novolin-R Bolus From Bag) 9.6 units IV ONE ONE Stop: 05/18/22 20:46 Last Admin: 05/18/22 22:03 Dose: 9.6 units Documented By: MYRIAM Co-signed By: KITTY Miscellaneous (Dka Goal Range 150-250 Mg/Dl) 1 each N/A ONE ONE Stop: 05/18/22 20:07 Last Admin: 05/18/22 22:02 Dose: 1 each Documented By: MYRIAM Ondansetron HCl (Ondansetron Inj 2 Mg/Ml 2 Ml Vial) 4 mg IV NOW STA Stop: 05/18/22 17:03 Last Admin: 05/18/22 17:15 Dose: 4 mg Documented By: CARLOS MANUEL Medical Decision Making Laboratory Data Result diagrams: 05/18/22 15:55 05/18/22 20:07 Lab Results 05/18/22 05/18/22 05/18/22 Range/Units 15:55 15:55 17:13 WBC 9.83 (4.8-10.8) K/ul RBC 6.74 H (4.63-6.08) M/uL Hgb 21.3 H (14.0-18.0) g/dl Hct 61.7 H (40.1-51.0) % MCV 91.5 (80.0-100.0) fL MCH 32.5 (25.0-34.0) pg MCHC 35.5 (32.0-36.0) g/dL RDW Std Deviation 42.2 (36.4-46.3) fL RDW Coeff of Sylvia 13.1 (11.5-14.5) % Plt Count 289 (130-400) K/uL MPV 11.2 (9.4-12.4) fL Immature Gran % (Auto) 0.2 % Neut % (Auto) 83.3 % Lymph % (Auto) 6.5 % Piatt % (Auto) 7.8 % Eos % (Auto) 1.7 % Baso % (Auto) 0.5 % Neut # (Auto) 8.18 H (1.4-6.5) K/uL Lymph # (Auto) 0.64 L (1.2-3.4) K/uL Piatt # (Auto) 0.77 (0.24-0.82) K/uL Eos # (Auto) 0.17 (0-0.50) K/uL Baso # (Auto) 0.05 (0-0.2) K/uL Immature Gran # (Auto) 0.02 (0.00-0.02) K/uL VBG pH (7.36-7.41) VBG pCO2 (38-50) mmHg VBG pO2 mmHg VBG HCO3 mmol/L VBG O2 Saturation % VBG Base Excess mEq/L Sodium 140 (136-145) mmol/L Potassium 4.8 (3.5-5.1) mmol/L Chloride 99 (98-107) mmol/L Carbon Dioxide 26 (21-32) mmol/L Anion Gap 15 H (3-11) BUN 29 H (6-23) mg/dl Creatinine 2.08 H (0.6-1.4) mg/dl Est Cr Clr Drug Dosing 42.8 ml/min Est GFR ( Amer) 38.7 ml/min Est GFR (Non-Af Amer) 33.4 ml/min BUN/Creatinine Ratio 13.9 (10-20) Glucose 416 H* (70-99(Fasting)) mg/dl POC Glucose (70-99) mg/dl Lactate (0.4-2.0) mmol/L Calcium 10.0 (8.5-10.1) mg/dl Ionized Calcium (1.12-1.32) mmol/L Phosphorus (2.5-4.9) mg/dl Magnesium Total Bilirubin 1.2 H (0.2-1.0) mg/dl AST 16 (13-39) U/L ALT 23 (7-52) U/L Alkaline Phosphatase 99 (34-104) U/L Total Protein 7.9 (6.0-8.3) gm/dl Albumin 4.5 (3.4-5.0) gm/dl Globulin 3.4 (2.5-4.0) gm/dl Albumin/Globulin Ratio 1.3 (0.9-2) Lipase 11 (11-82) U/L SARS-CoV-2, RNA, NAAT NEGATIVE (NEGATIVE) 05/18/22 05/18/22 05/18/22 Range/Units 18:40 18:40 18:40 WBC (4.8-10.8) K/ul RBC (4.63-6.08) M/uL Hgb (14.0-18.0) g/dl Hct (40.1-51.0) % MCV (80.0-100.0) fL MCH (25.0-34.0) pg MCHC (32.0-36.0) g/dL RDW Std Deviation (36.4-46.3) fL RDW Coeff of Sylvia (11.5-14.5) % Plt Count (130-400) K/uL MPV (9.4-12.4) fL Immature Gran % (Auto) % Neut % (Auto) % Lymph % (Auto) % Piatt % (Auto) % Eos % (Auto) % Baso % (Auto) % Neut # (Auto) (1.4-6.5) K/uL Lymph # (Auto) (1.2-3.4) K/uL Piatt # (Auto) (0.24-0.82) K/uL Eos # (Auto) (0-0.50) K/uL Baso # (Auto) (0-0.2) K/uL Immature Gran # (Auto) (0.00-0.02) K/uL VBG pH 7.31 L (7.36-7.41) VBG pCO2 52 H (38-50) mmHg VBG pO2 26 mmHg VBG HCO3 26 mmol/L VBG O2 Saturation < 60.0 % VBG Base Excess -0.8 mEq/L Sodium TNP (136-145) mmol/L Potassium TNP (3.5-5.1) mmol/L Chloride 104 (98-107) mmol/L Carbon Dioxide 22 (21-32) mmol/L Anion Gap TNP (3-11) BUN 29 H (6-23) mg/dl Creatinine 1.59 H D (0.6-1.4) mg/dl Est Cr Clr Drug Dosing 55.9 ml/min Est GFR ( Amer) 53.5 ml/min Est GFR (Non-Af Amer) 46.2 ml/min BUN/Creatinine Ratio 18.2 (10-20) Glucose 362 H* (70-99(Fasting)) mg/dl POC Glucose (70-99) mg/dl Lactate (0.4-2.0) mmol/L Calcium 8.1 L (8.5-10.1) mg/dl Ionized Calcium 1.02 L (1.12-1.32) mmol/L Phosphorus (2.5-4.9) mg/dl Magnesium TNP Total Bilirubin (0.2-1.0) mg/dl AST (13-39) U/L ALT (7-52) U/L Alkaline Phosphatase (34-104) U/L Total Protein (6.0-8.3) gm/dl Albumin (3.4-5.0) gm/dl Globulin (2.5-4.0) gm/dl Albumin/Globulin Ratio (0.9-2) Lipase (11-82) U/L SARS-CoV-2, RNA, NAAT (NEGATIVE) 05/18/22 05/18/22 05/18/22 Range/Units 18:40 19:07 19:10 WBC (4.8-10.8) K/ul RBC (4.63-6.08) M/uL Hgb (14.0-18.0) g/dl Hct (40.1-51.0) % MCV (80.0-100.0) fL MCH (25.0-34.0) pg MCHC (32.0-36.0) g/dL RDW Std Deviation (36.4-46.3) fL RDW Coeff of Sylvia (11.5-14.5) % Plt Count (130-400) K/uL MPV (9.4-12.4) fL Immature Gran % (Auto) % Neut % (Auto) % Lymph % (Auto) % Piatt % (Auto) % Eos % (Auto) % Baso % (Auto) % Neut # (Auto) (1.4-6.5) K/uL Lymph # (Auto) (1.2-3.4) K/uL Piatt # (Auto) (0.24-0.82) K/uL Eos # (Auto) (0-0.50) K/uL Baso # (Auto) (0-0.2) K/uL Immature Gran # (Auto) (0.00-0.02) K/uL VBG pH (7.36-7.41) VBG pCO2 (38-50) mmHg VBG pO2 mmHg VBG HCO3 mmol/L VBG O2 Saturation % VBG Base Excess mEq/L Sodium (136-145) mmol/L Potassium (3.5-5.1) mmol/L Chloride (98-107) mmol/L Carbon Dioxide (21-32) mmol/L Anion Gap (3-11) BUN (6-23) mg/dl Creatinine (0.6-1.4) mg/dl Est Cr Clr Drug Dosing ml/min Est GFR ( Amer) ml/min Est GFR (Non-Af Amer) ml/min BUN/Creatinine Ratio (10-20) Glucose (70-99(Fasting)) mg/dl POC Glucose 367 H* 323 H* (70-99) mg/dl Lactate 3.6 H* (0.4-2.0) mmol/L Calcium (8.5-10.1) mg/dl Ionized Calcium (1.12-1.32) mmol/L Phosphorus (2.5-4.9) mg/dl Magnesium Total Bilirubin (0.2-1.0) mg/dl AST (13-39) U/L ALT (7-52) U/L Alkaline Phosphatase (34-104) U/L Total Protein (6.0-8.3) gm/dl Albumin (3.4-5.0) gm/dl Globulin (2.5-4.0) gm/dl Albumin/Globulin Ratio (0.9-2) Lipase (11-82) U/L SARS-CoV-2, RNA, NAAT (NEGATIVE) 05/18/22 05/18/22 05/18/22 Range/Units 19:14 20:07 20:21 WBC (4.8-10.8) K/ul RBC (4.63-6.08) M/uL Hgb (14.0-18.0) g/dl Hct (40.1-51.0) % MCV (80.0-100.0) fL MCH (25.0-34.0) pg MCHC (32.0-36.0) g/dL RDW Std Deviation (36.4-46.3) fL RDW Coeff of Sylvia (11.5-14.5) % Plt Count (130-400) K/uL MPV (9.4-12.4) fL Immature Gran % (Auto) % Neut % (Auto) % Lymph % (Auto) % Piatt % (Auto) % Eos % (Auto) % Baso % (Auto) % Neut # (Auto) (1.4-6.5) K/uL Lymph # (Auto) (1.2-3.4) K/uL Piatt # (Auto) (0.24-0.82) K/uL Eos # (Auto) (0-0.50) K/uL Baso # (Auto) (0-0.2) K/uL Immature Gran # (Auto) (0.00-0.02) K/uL VBG pH (7.36-7.41) VBG pCO2 (38-50) mmHg VBG pO2 mmHg VBG HCO3 mmol/L VBG O2 Saturation % VBG Base Excess mEq/L Sodium 139 (136-145) mmol/L Potassium 4.6 (3.5-5.1) mmol/L Chloride 104 (98-107) mmol/L Carbon Dioxide 25 (21-32) mmol/L Anion Gap 10 (3-11) BUN 28 H (6-23) mg/dl Creatinine 1.54 H (0.6-1.4) mg/dl Est Cr Clr Drug Dosing 57.8 ml/min Est GFR ( Amer) 55.6 ml/min Est GFR (Non-Af Amer) 48.0 ml/min BUN/Creatinine Ratio 18.2 (10-20) Glucose 362 H* (70-99(Fasting)) mg/dl POC Glucose 381 H* 345 H* (70-99) mg/dl Lactate (0.4-2.0) mmol/L Calcium 8.6 (8.5-10.1) mg/dl Ionized Calcium (1.12-1.32) mmol/L Phosphorus 1.8 L (2.5-4.9) mg/dl Magnesium 1.8 Total Bilirubin (0.2-1.0) mg/dl AST (13-39) U/L ALT (7-52) U/L Alkaline Phosphatase (34-104) U/L Total Protein (6.0-8.3) gm/dl Albumin (3.4-5.0) gm/dl Globulin (2.5-4.0) gm/dl Albumin/Globulin Ratio (0.9-2) Lipase (11-82) U/L SARS-CoV-2, RNA, NAAT (NEGATIVE) 05/18/22 05/18/22 05/18/22 Range/Units 20:33 20:33 21:45 WBC (4.8-10.8) K/ul RBC (4.63-6.08) M/uL Hgb (14.0-18.0) g/dl Hct (40.1-51.0) % MCV (80.0-100.0) fL MCH (25.0-34.0) pg MCHC (32.0-36.0) g/dL RDW Std Deviation (36.4-46.3) fL RDW Coeff of Sylvia (11.5-14.5) % Plt Count (130-400) K/uL MPV (9.4-12.4) fL Immature Gran % (Auto) % Neut % (Auto) % Lymph % (Auto) % Piatt % (Auto) % Eos % (Auto) % Baso % (Auto) % Neut # (Auto) (1.4-6.5) K/uL Lymph # (Auto) (1.2-3.4) K/uL Piatt # (Auto) (0.24-0.82) K/uL Eos # (Auto) (0-0.50) K/uL Baso # (Auto) (0-0.2) K/uL Immature Gran # (Auto) (0.00-0.02) K/uL VBG pH 7.32 L (7.36-7.41) VBG pCO2 (38-50) mmHg VBG pO2 mmHg VBG HCO3 mmol/L VBG O2 Saturation % VBG Base Excess mEq/L Sodium (136-145) mmol/L Potassium (3.5-5.1) mmol/L Chloride (98-107) mmol/L Carbon Dioxide (21-32) mmol/L Anion Gap (3-11) BUN (6-23) mg/dl Creatinine (0.6-1.4) mg/dl Est Cr Clr Drug Dosing ml/min Est GFR ( Amer) ml/min Est GFR (Non-Af Amer) ml/min BUN/Creatinine Ratio (10-20) Glucose (70-99(Fasting)) mg/dl POC Glucose 337 H* (70-99) mg/dl Lactate 3.2 H* (0.4-2.0) mmol/L Calcium (8.5-10.1) mg/dl Ionized Calcium (1.12-1.32) mmol/L Phosphorus (2.5-4.9) mg/dl Magnesium Total Bilirubin (0.2-1.0) mg/dl AST (13-39) U/L ALT (7-52) U/L Alkaline Phosphatase (34-104) U/L Total Protein (6.0-8.3) gm/dl Albumin (3.4-5.0) gm/dl Globulin (2.5-4.0) gm/dl Albumin/Globulin Ratio (0.9-2) Lipase (11-82) U/L SARS-CoV-2, RNA, NAAT (NEGATIVE) MDM Narrative Vital signs stable. Labs show hemoglobin of 21.3. Creatinine 2.08. The patient's glucose is 416 and there is an anion gap of 15. The patient's lab a bnormalities are thought to be due to the patient's dehydration from vomiting and diarrhea so much. COVID-negative. Stool culture is pending. We will adequately hydrate the patient with 2 L IV fluids as this is thought to be due to dehydration. Plan on patient will be admitted to the [facility] hospitalist team Dr. Hardin team has been notified. Patient will be held off insulin drip at this time given we think that his labs will improve with IV hydration. Impression & Plan YOANA (acute kidney injury) Discharge Plan Visit Data Chief Complaint: Vomiting Stated Complaint: VOMITING, DIARHHEA ED Provider: Duncan Herr Discharge Problem: YOANA (acute kidney injury) Patient Disposition: Admitted As Inpatient Forms Stand Alone Forms: My [facility] Prescriptions Prescriptions: No Action (DME) pen needle, diabetic [BD Ultra-Fine Mini Pen Needle] 31 gauge x 3/16" needle See Rx Instructions .ROUTE .MEDSUPPLY Qty: 300 3RF Rx Instructions: As directed to inject Lantus and Novolog, up to 3 times a day losartan 50 mg tablet 25 mg PO QAM Qty: 45 3RF fluticasone propionate 50 mcg/actuation spray,suspension 2 spray INTNAS QAM Qty: 16 11RF Rx Instructions: administer into each nostril ipratropium bromide 21 mcg (0.03 %) spray,non-aerosol 2 spray intranasal QAM Qty: 30 6RF Rx Instructions: administer into each nostril omega-3 fatty acids [Fish Oil Concentrate] 1,000 mg capsule 1,000 mg PO QAM rosuvastatin [Crestor] 10 mg tablet 10 mg PO DAILY Qty: 90 3RF Azo Cranberry 250 mg tablet,chewable 250 mg PO QAM multivitamin with iron tablet 1 tab PO QAM aspirin [Aspir-Low] 81 mg Tablet,Delayed Release (Dr/Ec) 81 mg PO DAILY insulin glargine-yfgn [Semglee(insulin glarg-yfgn)Pen] 100 unit/mL (3 mL) insulin pen 0 unit SUBCUT QAM Rx Instructions: PER SLIDING SCALE Referrals Referrals: Pro,Frantz Stephenson MD [Primary Care Provider] -
--- NOTE | 2022-05-18 18:29 | History & Physical Report ---
Date of Service May 18, 2022 Assessment & Plan (1) DKA (diabetic ketoacidosis): Plan: Diabetic Ketoacidosis - Hyperglycemia (415) - Partial DKA picture (elevated glucose, normal bicarb, high anion gap, pH 7.31, dehydrated) - Anion Gap 15 on presentation, resolved on recheck @ 1999 to 10 after 3 fluid boluses - Fluid Resuscitation + Insulin + Potassium (per DKA protocol) - Normosol 80 ml/hr, 1/2 NSS + 40 mEq q2h, Insulin IV titrate - DKA glucose goal 150-250 - Lactate 3.6 H - Ionized Ca 1.02 L, Mg 1.8 N, Hypophosphatemia 1.8 L (replete w/ KPhos, recheck in AM) - Follow Potassium via BMP Lower Abdominal Pain w/ Nausea & Vomiting: - Normal LFTs - Normal Lipase - CT Abd/Pelvis: liquid stool in colon, normal appendix, bilateral nephrolithiasis, cholelithiasis - Stool BioFire Pending Acute Kidney Injury - Likely 2/2 Dehydration - BUN 29 H/ Cr 2.08 (baseline 0.92) - improved to BUN 29 H/ Cr 1.59 w/ fluids - Urinalysis - pending Diabetes - See Above Hypertension - Hold Losartan d/t YOANA Hyperlipidemia - Continue Rosuvastatin Sinusitis - Continue home Fluticasone propionate and Ipratropium bromide (2) Abdominal pain, vomiting, and diarrhea: (3) YOANA (acute kidney injury): (4) Diabetes: (5) HTN (hypertension): (6) Hyperlipidemia: (7) Sinusitis: Plan Fluids: Normosol 80 ml/hr Electrolytes: wnl, trend K d/t insulin Diet: NPO DVT Ppx: Heparin d/t YOANA Dispo: Med/Tele History of Present Illness Chief Complaint: Vomiting/Diarrhea Primary Care Provider: Frantz Sanchez MD Arnold is a 62 year old male with history of DM, HTN, kidney disease, obesity, HLD, fatty liver disease, chronic sinusitis, and anxiety who presents for evaluation of vomiting and diarrhea. ED: Vital signs stable. Labs show hemoglobin of 21.3. Creatinine 2.08. Thought to be dehydration from vomiting and diarrhea. COVID-negative. Stool culture is pending. Received NSS 1000 ml x 3 and Zofran. Glucose 416. HPI: Patient notes that 05/11 he went for lab work. Afterwards he became 'sick as a dog'. He notes that he experienced abdominal pain, nausea, emesis, and diarrhea simultaneously. He had significant 'pain in his colon' during this episode. Ultimately this episode resolved over the course of the day . Patient used antacids and Maalox for symptom control. Today, at 2 AM his abdominal pain, emesis, and diarrhea returned suddenly. He describes significant amounts of brown colored stool without blood and emesis/dry heaves without blood. Throughout the morning, patient began to feel overall exhausted. He notes an episode of 'passing out' while sitting on the toilet (no fall), which required his to arouse him. Patient's progressive exhaustion prompted the patient and his (Inna) to come to the ER. Patient notes that this has never happened before. Both episodes were relatively consistent, the second just had more frequent emesis and diarrhea. Patient desc ribes ongoing discomfort in his lower abdomen below his umbilicus, without radiation. He states the pressure like discomfort is 6/10. Patient endorses ongoing anorexia. He attempted to consume toast this morning without success. He endorses diaphoresis and lightheadedness during these two episodes, but denies fevers, shortness of breath, chest pain, headaches, sick contacts, or recent travel. Patient and his have shared all of their meals over the last week. Patient had a colonoscopy this year which evidenced polyps. Patient has had prior laproscopic abdominal hernia repair surgery. No recent medication changes. Patient continues to take his diabetes medications. His home sugars average 170s without lows. He did not take his insulin today as he had not been eating. He consumes a shot of wine with dinner each evening. No tobacco use. No illicit drug use. Allergies Allergy/AdvReac Type Severity Reaction Status Date / Time peanut Allergy Unknown lethargic, Verified 05/18/22 18:18 GI upset pollen Allergy Unknown Unknown Uncoded 05/18/22 18:18 GENERAL ANESTHESIA AdvReac Intermediate Vomiting Uncoded 05/18/22 18:30 Home Medications Medication Instructions Recorded Confirmed Type cranberry fruit concentrate 250 mg 250 mg PO QAM 04/23/19 05/24/22 History chewable tablet (Azo Cranberry) multivitamin with iron 1 tab PO QAM 04/23/19 05/24/22 History omega-3 fatty acids 1,000 mg 1,000 mg PO QAM 10/18/19 05/24/22 History capsule (Fish Oil Concentrate) pen needle, diabetic 31 gauge x #300 ea 03/16/21 05/24/22 Rx 3/16" (BD Ultra-Fine Mini Pen Needle) losartan 50 mg tablet 25 mg PO QAM #45 tabs 11/03/21 05/24/22 Rx fluticasone propionate 50 2 spray intranasal QAM #16 grams 11/24/21 05/24/22 Rx mcg/actuation nasal spray,suspension ipratropium bromide 21 mcg (0.03 2 spray intranasal QAM #30 mL 11/24/21 05/24/22 Rx %) nasal spray aspirin 81 mg tablet,delayed 81 mg PO DAILY 05/18/22 05/24/22 History release insulin glargine-yfgn 100 unit/mL 0 unit subcut QAM 05/18/22 05/24/22 History (3 mL) subcutaneous pen (Semglee (insulin glargine-yfgn) Pen) insulin aspart U-100 100 unit/mL 1 sliding scale dose subcut 05/23/22 05/24/22 History (3 mL) subcutaneous pen (Novolog USEASDIRECTD Flexpen U-100 Insulin aspart) Past Med/Surg History Medical History Anxiety DM type 2 (diabetes mellitus, type 2) Fatty liver disease, nonalcoholic Hyperlipidemia Obesity Osteoarthritis PONV (postoperative nausea and vomiting) Renal cyst Surgical History H/O inguinal hernia repair H/O sinus surgery H/O umbilical hernia repair H/O vasectomy History of ankle surgery History of colonoscopy History of cystoscopy Family History Father Coronary arteriosclerosis Diabetes Gallbladder disease Hypertension Myocardial infarction Heart disease Unknown Coronary arteriosclerosis Gallbladder disease Myocardial infarction Breast cancer Kidney stones Sister Gallbladder disease Breast cancer Kidney stones Mother Breast cancer Cancer Brother Kidney stones Other No family history of bleeding disorder Denies family history of Ovarian cancer Prostate cancer Hearing loss Colorectal cancer Stroke Asthma Social History Smoking Status: Never smoker Second Hand Exposure: No; Hx Alcohol Use: No Hx Substance Use: No Preferred Language: Yoruba Communication Ability: Effective Visual Impairment: No Limitations Hearing Ability: Normal House Servant Required: No Beliefs That Will Affect Care: None marital status: Current Living Situation: Significant Other current occupational status: retired 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 Physical Exam Physical Exam: Gen: NAD, alert, interactive HEENT: Supple, no LAD, no thyromegaly, no JVD, dry mucous membranes Resp:Non-labored, no wheezing/rhonchi/rales, CTAB CV:RRR, normal S1/S2, no M/R/G Abd: Soft, non-distended, guarding, TTP in RLQ & LLQ (LLQ > RLQ), hypoactive bowels, no masses, no peritoneal signs Extr: 2+ dp bilaterally, no edema Skin: No rashes lesions or erythema Results & Data Results & Data ([facility]) Vital Signs (Past 12 Hours) Vital Signs Temp Pulse Pulse Resp BP BP Pulse Ox 05/18/22 17:57 96 H 18 122/78 93 05/18/22 17:12 113/73 05/18/22 16:58 105 H 18 92/67 L 96 05/18/22 16:36 36.4 C L 118 H 18 83/31 L 95 O2 Del Method 05/18/22 17:57 Room Air 05/18/22 17:12 05/18/22 16:58 Room Air 05/18/22 16:36 Room Air Diagnostic Findings CT Abdomen/Pelvis 05/18/22: 1. Suboptimal examination without oral and IV contrast. 2. Liquid stool is noted in the colon. Correlate clinically for evidence of a diarrheal illness. 3. Bilateral nephrolithiasis. 4. Cholelithiasis. 5. Additional findings as above. Urinalysis: Pending Code Status & VTE Plan Code Status Full Code Supervising Physician Co-Signing Physician Notes Patient seen and examined at bedside. During face to face encounter, I obtained a physical examination and clinical history at bedside. Discussed plan of care with patient and Dr. Beatty Patient will be admitted for DKA. Patient will be placed on insulin drip. Give IV fluid and will monitor. Resident Activity Tracking Resident Involvement: Resident Care Provided Care Provided: Adult Hospital Medicine
[2022-05-18 19:04] LABS: Base Excess VBG -0.8 mEq/L; HCO3 VBG 26 mmol/L; Oxygen Saturation VBG < 60.0 %; PCO2 VBG 52 mmHg (38-50); PO2 VBG 26 mmHg; pH VBG 7.31 (7.36-7.41)
[2022-05-18 19:26] LABS: BUN Creatinine Ratio 18.2 (10-20); Blood Urea Nitrogen 29 mg/dl (6-23); Calcium 8.1 mg/dl (8.5-10.1); Carbon Dioxide 22 mmol/L (21-32); Chloride 104 mmol/L (98-107); Creatinine Clr Calc Pharmacy 55.9 ml/min; Est GFR (African American) 53.5 ml/min; Est GFR (Non-African American) 46.2 ml/min; Glucose 362 mg/dl (70-99(Fasting))
[2022-05-18] MEDS ORDERED: STAT IV Infusion **Titration per Protocol STA (20:06)
[2022-05-18] MEDS ORDERED: DKA GOAL RANGE 150-250 mg/dl ONE (20:06)
[2022-05-18] MEDS ORDERED: PHARMACY GLYCEMIC MGMT CONSULT PRN (20:06)
--- NOTE | 2022-05-18 20:13 | CT Scan Report ---
CT SCAN OF THE ABDOMEN AND PELVIS WITHOUT IV CONTRAST CLINICAL HISTORY: Generalized abdominal pain. Vomiting and diarrhea. COMPARISON STUDY: Abdominal CT dated 08/21/2017. TECHNIQUE: CT scan of the abdomen and pelvis is performed from the lung bases to the proximal femora. Images are reviewed in the axial, sagittal, and coronal planes. IV contrast was not administered for this examination. Note that the examination was performed in significant suboptimal fashion without oral and IV contrast. A dose lowering technique was utilized adhering to the principles of ALARA. CT DOSE: 673.08 mGy.cm FINDINGS: Lung bases: The heart is normal in size and without pericardial effusion. The lung bases are clear no ting bibasilar atelectasis. Liver: The unenhanced liver is normal in size, contour, and attenuation. There is no intrahepatic shyla iary ductal dilatation. Gallbladder: There are calcified gallstones with no CT evidence of acute cholecystitis. Spleen: Normal in size and attenuation. Pancreas: The unenhanced pancreas is moderately atrophic and grossly unremarkable. Adrenal glands: Unremarkable. Kidneys: The unenhanced kidneys are normal in size and without hydronephrosis. Foci of cortical scarr ing are noted in the left kidney. There are least 5 nonobstructing left renal calculi measuring up to 18 mm. A punctate nonobstructing calculus is seen on the right. No ureteral stone is identified. A 1 .6 cm cyst arises from the lower pole of the right kidney. Abdominal vasculature: The abdominal aorta is normal in course and caliber. Bowel: Liquid stool is noted in the colon. There is no colonic wall thickening or surrounding inflamm ation. No bowel obstruction is seen. The appendix is well-visualized and normal. Peritoneum: There is no intraperitoneal free air or abdominal ascites. Lymphadenopathy: None. Pelvic viscera: The bladder is distended but otherwise normal in appearance. The prostate and seminal vesicles are normal as imaged. Skeletal structures: No lytic or blastic lesions are seen. IMPRESSION: 1. Suboptimal examination without oral and IV contrast. 2. Liquid stool is noted in the colon. Correlate clinically for evidence of a diarrheal illness. 3. Bilateral nephrolithiasis. 4. Cholelithiasis. 5. Additional findings as above. ACT 112: Negative or not required by law. Electronically signed by: Jhonatan Urrutia M.D. 05/18/2022 8:11 PM
[2022-05-18] MEDS ORDERED: NORMOSOL-R 1,000 ML IV SCH (20:15)
[2022-05-18 20:45] LABS: BUN Creatinine Ratio 18.2 (10-20); Calcium 8.6 mg/dl (8.5-10.1); Creatinine Clr Calc Pharmacy 57.8 ml/min; Est GFR (African American) 55.6 ml/min; Magnesium 1.8 mg/dl (1.7-2.4); Phosphorus 1.8 mg/dl (2.5-4.9); Potassium 4.6 mmol/L (3.5-5.1)
[2022-05-18] MEDS ORDERED: INSULIN REGULAR 250 UNITS in SODIUM CHLORIDE 0.9% 247.5 ML IV SCH (20:45)
[2022-05-18] MEDS ORDERED: NovoLIN-R BOLUS FROM BAG IV ONE (20:45)
[2022-05-18] MEDS ORDERED: DEXTROSE 50% 50 ML SYRINGE IV PRN (21:00)
[2022-05-18] MEDS ORDERED: GLUCAGON FOR INJ 1 MG VIAL IM PRN (21:00)
[2022-05-18] MEDS ORDERED: CARBOHYDRATES FOR HYPOGLYCEMIA PO PRN (21:00)
[2022-05-18] MEDS ORDERED: GLUCOSE 40% GEL 15 GM TUBE PO PRN (21:00)
[2022-05-18] MEDS ORDERED: GLUCOSE 10 TAB/TUBE PO PRN (21:00)
[2022-05-18] MEDS: HEPARIN SOD 5,000 UNIT/0.5 ML VIAL SQ SCH (22:35)
[2022-05-18] MEDS ORDERED: ONDANSETRON INJ 2 MG/ML 2 ML VIAL IV PRN (23:46)
[2022-05-18] MEDS ORDERED: ACETAMINOPHEN 325 MG TAB PO PRN (23:46)
[2022-05-18] MEDS ORDERED: POTASSIUM PHOS 3 MMOL/1 ML INFUSION IV STA (23:46)
[2022-05-19] MEDS: INSULIN ASPART PER UNIT SC SCH ×5 (00:13→22:07)
[2022-05-19] MEDS ORDERED: POTASSIUM PHOSPHATE 15 MMOL in SODIUM CHLORIDE 0.9% 250 ML IV ONE (00:30)
[2022-05-19 01:04] LABS: Calcium 9.1 mg/dl (8.5-10.1); Creatinine Clr Calc Pharmacy 61.3 ml/min; Est GFR (African American) 59.8 ml/min; Est GFR (Non-African American) 51.6 ml/min; Magnesium 1.9 mg/dl (1.7-2.4); Phosphorus 1.7 mg/dl (2.5-4.9); Potassium 4.4 mmol/L (3.5-5.1)
[2022-05-19] MEDS: D5W AND 1/2NSS + 20MEQ KCL 20 MEQ/1,000 ML BAG IV SCH ×2 (03:56→16:19)
[2022-05-19] MEDS: PENDING 1/2NSS+40mEq KCL IVF SCH (04:41)
[2022-05-19 04:57] LABS: BUN Creatinine Ratio 22.8 (10-20); Creatinine Clr Calc Pharmacy 65.6 ml/min; Est GFR (African American) 64.6 ml/min; Est GFR (Non-African American) 55.8 ml/min; Magnesium 1.9 mg/dl (1.7-2.4); Phosphorus 2.1 mg/dl (2.5-4.9); Potassium 4.7 mmol/L (3.5-5.1)
[2022-05-19] MEDS: HEPARIN SOD 5,000 UNIT/0.5 ML VIAL SQ SCH ×3 (05:40→22:08)
[2022-05-19 07:37] LABS: Appearance Urine Clear (Clear); Bacteria Urine Automated Negative (Negative); Bilirubin Urine Negative (Negative); Blood Urine Negative (Negative); Color Urine Dark Yellow; Glucose Urine UA 3+ (Negative); Ketones Urine Trace (Negative); Leukocyte Esterase Urine Negative (Negative); Nitrite Urine Negative (Negative); Protein Urine 2+ (Negative); RBC Urine Automated 0-4 /hpf (0-4); Specific Gravity Urine 1.031 (1.000-1.030); Urobilinogen Urine Negative (Negative); pH Urine 5.5 (4.5-7.5)
[2022-05-19] MEDS: ASPIRIN 81 MG ECTAB PO SCH (08:08)
[2022-05-19] MEDS: OMEGA-3 (PURIFIED FISH OIL) 1 GM CAP PO SCH (08:09)
[2022-05-19] MEDS: FLUTICASONE PROPIONATE NA SPR 16 GM BTL SCH (08:09)
[2022-05-19] MEDS: IPRATROPIUM BROMIDE NASAL SPRAY 0.06% 15ML NAE SCH (08:09)
[2022-05-19] MEDS: ROSUVASTATIN CALCIUM 10 MG TAB PO SCH (08:10)
[2022-05-19] MEDS: MULTIVITAMIN TAB PO SCH (08:10)
--- NOTE | 2022-05-19 08:12 | Electrocardiogram Report ---
Test Reason : Blood Pressure : / mmHG Vent. Rate : 094 BPM Atrial Rate : 094 BPM P-R Int : 138 ms QRS Dur : 082 ms QT Int : 362 ms P-R-T Axes : 064 030 050 degrees QTc Int : 452 ms Normal sinus rhythm Normal ECG When compared with ECG of 20-AUG-2017 23:03, No significant change was found Confirmed by David Narayan ([id number]) on 05/19/2022 8:12:18 AM Referred By: REFERRED SELF Confirmed By:David Narayan
[2022-05-19] MEDS ORDERED: LANTUS PER UNIT CHARGE SQ ONE (08:30)
[2022-05-19 08:47] LABS: BUN Creatinine Ratio 24.8 (10-20); Calcium 9.1 mg/dl (8.5-10.1); Creatinine Clr Calc Pharmacy 69.2 ml/min; Est GFR (African American) 68.9 ml/min; Est GFR (Non-African American) 59.4 ml/min; Magnesium 1.8 mg/dl (1.7-2.4); Phosphorus 3.3 mg/dl (2.5-4.9); Potassium 4.6 mmol/L (3.5-5.1)
[2022-05-19] MEDS ORDERED: NON-FORMULARY MEDICATION (Cranberry Fruit Concentrate [Azo Cranberry] 250 mg tablet,chewab PO SCH (09:00)
[2022-05-19] MEDS ORDERED: NON-FORMULARY MEDICATION (Insulin Glargine-Yfgn [Semglee(Insulin Glarg-Yfgn)Pen] 100 unit/ SQ SCH (09:00)
[2022-05-19 09:47] LABS: Adenovirus F 40/41 PCR Not Detected (NotDetected); Astrovirus PCR Not Detected (NotDetected); Campylobacter PCR Not Detected (NotDetected); Clostridium diff Toxin A/B PCR Not Detected (NotDetected); Cryptosporidium PCR Not Detected (NotDetected); Cyclospora cayetanensis PCR Not Detected (NotDetected); Entamoeba histolytica PCR Not Detected (NotDetected); Enteroaggregative E.coli(EAEC) Not Detected (NotDetected); Enteropathogenic E.coli (EPEC) Not Detected (NotDetected); Enterotoxigenic E.coli (ETEC) Not Detected (NotDetected); Giardia lamblia PCR Not Detected (NotDetected); Norovirus GI/GII PCR Not Detected (NotDetected); Plesiomonas shigelloides PCR Not Detected (NotDetected); Rotavirus A PCR Not Detected (NotDetected); Salmonella PCR Not Detected (NotDetected); Sapovirus PCR Not Detected (NotDetected); Shiga-like Toxin E.coli (STEC) Not Detected (NotDetected); Shigella/Enteroinvasive E.coli Not Detected (NotDetected); Vibrio cholerae PCR Not Detected (NotDetected); Vibrio species PCR Not Detected (NotDetected); Yersinia enterocolitica PCR Not Detected (NotDetected)
--- NOTE | 2022-05-19 10:20 | Pharmacy Report ---
Pharmacy Glycemic Short Note 2 - Date of Service May 19, 2022 - Glycemic Short BSG Results (Last 24 hours): 05/18/22 05/18/22 05/18/22 15:55 18:40 19:07 Glucose 416 H* 362 H* POC Glucose 367 H* 05/18/22 05/18/22 05/18/22 19:10 19:14 20:07 Glucose 362 H* POC Glucose 323 H* 381 H* 05/18/22 05/18/22 05/18/22 20:21 21:45 22:47 Glucose POC Glucose 345 H* 337 H* 318 H* 05/18/22 05/19/22 05/19/22 23:51 00:30 00:36 Glucose 226 H POC Glucose 222 H 206 H 05/19/22 05/19/22 05/19/22 01:44 02:44 03:37 Glucose POC Glucose 212 H 182 H 196 H 05/19/22 05/19/22 05/19/22 04:19 05:43 06:39 Glucose 174 H POC Glucose 155 H 155 H 05/19/22 05/19/22 05/19/22 07:39 07:45 08:01 Glucose 154 H POC Glucose 157 H 168 H 05/19/22 09:49 Glucose POC Glucose 124 H OUTPATIENT ANTIDIABETIC REGIMEN: * Lantus 25-45 units based upon BSG value per patient, Novolog 10 units daily in AM plus SSI and 12 units at bedtime plus SSI * A1c 8.0% 04/2022 ASSESSMENT: * 62 year old admitted with DKA, lower abdominal pain with N/V, YOANA. Insulin drip started last evening for DKA protocol. Patient continues on insulin drip this morning, now running at 2.8 units/hr this morning. Patient with dextrose fluids running. Labs normalizing this morning, will consider transition off drip * Based upon current rate of insulin drip 2.8 units/hr (~65 units/day) - will reduce by 50% to account for dextrose fluids. Not sure what plan is for IV fluids or if patient will be able to eat. RN reports patient is feeling well this morning, denies any N/V today * Therefore, will start basal insulin conservatively with 20 units x 1. Will re- evaluate at lunch to see if insulin drip can be stopped PLAN FOR INPATIENT GLYCEMIC CONTROL: * Hold outpatient oral diabetes medications * Basal insulin * Lantus 20 units x 1 - to be given with insulin drip * Bolus insulin * per drip calculator ; once insulin drip off - 110-140 / CF 30 / CR 10
[2022-05-19] MEDS ORDERED: INSULIN ASPART PER UNIT SC SCH ×2 (12:00→13:30)
[2022-05-19 13:30] LABS: BUN Creatinine Ratio 30.1 (10-20); Creatinine Clr Calc Pharmacy 86.6 ml/min; Est GFR (African American) 90.4 ml/min; Potassium 4.5 mmol/L (3.5-5.1)
[2022-05-19] MEDS ORDERED: SODIUM CHLORIDE 0.9% 1000ML 1,000 ML IV SCH (16:45)
[2022-05-19 16:55] LABS: BUN Creatinine Ratio 26.4 (10-20); Calcium 8.7 mg/dl (8.5-10.1); Creatinine Clr Calc Pharmacy 81.1 ml/min; Est GFR (African American) 83.5 ml/min; Est GFR (Non-African American) 72.1 ml/min; Potassium 4.1 mmol/L (3.5-5.1)
[2022-05-19] MEDS ORDERED: LANTUS PER UNIT CHARGE SQ SCH (21:00)
--- NOTE | 2022-05-19 22:26 | Hospitalist Progress Note ---
Date of Service May 19, 2022 Assessment & Plan (1) DKA (diabetic ketoacidosis): Plan: Diabetic Ketoacidosis - Hyperglycemia (415) - Partial DKA picture (elevated glucose, normal bicarb, high anion gap, pH 7.31, dehydrated) - Anion Gap 15 on presentation, resolved on recheck @ 1999 to 10 after 3 fluid boluses - Fluid Resuscitation + Insulin + Potassium (per DKA protocol) - Normosol 80 ml/hr, 1/2 NSS + 40 mEq q2h, Insulin IV titrate - DKA glucose goal 150-250 - Lactate 3.6 H - Ionized Ca 1.02 L, Mg 1.8 N, Hypophosphatemia 1.8 L (replete w/ KPhos, recheck in AM) - Follow Potassium via BMP On 05/19, patient was bidged. Anion gap closed. Blood sugar improved. Blood work normalized Lower Abdominal Pain w/ Nausea & Vomiting: - Normal LFTs - Normal Lipase - CT Abd/Pelvis: liquid stool in colon, normal appendix, bilateral nephrolithiasis, cholelithiasis - Stool BioFire Pending Acute Kidney Injury - Likely 2/2 Dehydration - BUN 29 H/ Cr 2.08 (baseline 0.92) - improved to BUN 29 H/ Cr 1.59 w/ fluids Diabetes - See Above Hypertension - Hold Losartan d/t YOANA Hyperlipidemia - Continue Rosuvastatin Sinusitis - Continue home Fluticasone propionate and Ipratropium bromide (2) Abdominal pain, vomiting, and diarrhea: (3) YOANA (acute kidney injury): (4) Diabetes: (5) HTN (hypertension): (6) Hyperlipidemia: (7) Sinusitis: Plan Fluids: Normosol 80 ml/hr Electrolytes: wnl, trend K d/t insulin Diet: NPO DVT Ppx: Heparin d/t YONAA Dispo: Med/Tele Admission and Anticipated Discharge Date Admission Date: May 18, 2022 Subjective 62 yo male reports feeling better. Asking for a diet. Review of Systems Review of Systems: All systems reviewed & are unremarkable except as noted in HPI & below Physical Exam Constitutional: WD/WN, vitals as above Neck: trachea midline, no thyromegaly Respiratory: normal respiratory effort, lungs clear to auscultation Cardiovascular: RRR, no murmur, no edema Gastrointestinal (Abdomen): normal bowel sounds, soft, nontender, no hepatosplenomegaly Musculoskeletal: no cyanosis or clubbing, extremities motor strength 5/5 Neurologic: PERRL, EOMI, accommodation nl, no face palsy, no dysarthria Results & Data Results & Data ([facility]) Vital Signs (Past 12 Hours) Vital Signs Temp Pulse Pulse Resp BP Pulse Ox O2 Del Method 05/19/22 19:34 36.6 C 71 18 128/81 97 Room Air 05/19/22 14:59 78 05/19/22 12:27 36.8 C 76 17 109/74 94 Room Air PG Care Time/CCT Total # of Minutes Spent Total Time Spent with Patient: Total time spent is greater than 50% in coordination of care (as documented) at patient's floor/unit and/or counseling patient: Coding Level of Care Code 25917 Subseq Hosp Care Lvl 2 Diagnoses DKA (diabetic ketoacidosis) E11.10 Abdominal pain, vomiting, and diarrhea R10.9; R11.10; R19.7 YOANA (acute kidney injury) N17.9 Diabetes E11.9 HTN (hypertension) I10 Hyperlipidemia E78.5 Sinusitis J32.9
[2022-05-20] MEDS ORDERED: INSULIN ASPART PER UNIT SC SCH
[2022-05-20] MEDS: HEPARIN SOD 5,000 UNIT/0.5 ML VIAL SQ SCH ×2 (05:57→13:05)
[2022-05-20] MEDS ORDERED: LANTUS PER UNIT CHARGE SQ ONE (09:00)
[2022-05-20] MEDS: MULTIVITAMIN TAB PO SCH (09:05)
[2022-05-20] MEDS: ROSUVASTATIN CALCIUM 10 MG TAB PO SCH ×2 (09:05→09:20)
[2022-05-20] MEDS: FLUTICASONE PROPIONATE NA SPR 16 GM BTL SCH (09:06)
[2022-05-20] MEDS: OMEGA-3 (PURIFIED FISH OIL) 1 GM CAP PO SCH (09:06)
[2022-05-20] MEDS: IPRATROPIUM BROMIDE NASAL SPRAY 0.06% 15ML NAE SCH (09:07)
[2022-05-20] MEDS: INSULIN ASPART PER UNIT SC SCH ×2 (09:17→12:57)
[2022-05-20] MEDS: ASPIRIN 81 MG ECTAB PO SCH (10:08)
[2022-05-20 14:36] LABS: Hematocrit (blood only) 44.5 % (40.1-51.0); Hemoglobin 15.2 g/dl (14.0-18.0); Mean Corpuscular Hemoglobin 31.7 pg (25.0-34.0); Mean Corpuscular Hgb Conc 34.2 g/dL (32.0-36.0); Mean Corpuscular Volume 92.7 fL (80.0-100.0); Mean Platelet Volume 10.2 fL (9.4-12.4); Platelet Count 184 K/uL (130-400); RDW Coefficient of Variation 12.3 % (11.5-14.5); RDW Standard Deviation 41.7 fL (36.4-46.3); White Blood Count 8.86 K/ul (4.8-10.8)
[2022-05-20 15:13] LABS: Albumin Globulin Ratio 1.5 (0.9-2); Albumin Level 3.5 gm/dl (3.4-5.0); BUN Creatinine Ratio 17.6 (10-20); Bilirubin,Total 0.7 mg/dl (0.2-1.0); Calcium 8.9 mg/dl (8.5-10.1); Creatinine Clr Calc Pharmacy 105.1 ml/min; Globulin 2.4 gm/dl (2.5-4.0); Potassium 4.2 mmol/L (3.5-5.1); Total Protein 5.9 gm/dl (6.0-8.3)
--- NOTE | 2022-05-24 08:44 | Discharge Summary ---
Date of Service May 20, 2022 Admission HPI Per Admitting Provider Arnold is a 62 year old male with history of DM, HTN, kidney disease, obesity, HLD, fatty liver disease, chronic sinusitis, and anxiety who presents for evaluation of vomiting and diarrhea. ED: Vital signs stable. Labs show hemoglobin of 21.3. Creatinine 2.08. Thought to be dehydration from vomiting and diarrhea. COVID-negative. Stool culture is pending. Received NSS 1000 ml x 3 and Zofran. Glucose 416. HPI: Patient notes that 05/11 he went for lab work. Afterwards he became 'sick as a dog'. He notes that he experienced abdominal pain, nausea, emesis, and diarrhea simultaneously. He had significant 'pain in his colon' during this episode. Ultimately this episode resolved over the course of the day . Patient used antacids and Maalox for symptom control. Today, at 2 AM his abdominal pain, emesis, and diarrhea returned suddenly. He describes significant amounts of brown colored stool without blood and emesis/dry heaves without blood. Throughout the morning, patient began to feel overall exhausted. He notes an episode of 'passing out' while sitting on the toilet (no fall), which required his to arouse him. Patient's progressive exhaustion prompted the patient and his (Inna) to come to the ER. Patient notes that this has never happened before. Both episodes were relatively consistent, the second just had more frequent emesis and diarrhea. Patient describes ongoing discomfort in his lower abdomen below his umbilicus, without radiation. He states the pressure like discomfort is 6/10. Patient endorses ongoing anorexia. He attempted to consume toast this morning without success. He endorses diaphoresis and lightheadedness during these two episodes, but denies fevers, shortness of breath, chest pain, headaches, sick contacts, or recent travel. Patient and his have shared all of their meals over the last week. Patient had a colonoscopy this year which evidenced polyps. Patient has had prior laproscopic abdominal hernia repair surgery. No recent medication changes. Patient continues to take his diabetes medications. His home sugars average 170s without lows. He did not take his insulin today as he had not been eating. He consumes a shot of wine with dinner each evening. No tobacco use. No illicit drug use. Principal Diagnosis Diabetic Ketoacidosis Discharge Exam Constitutional WD/WN, vitals as above Neck trachea midline, no thyromegaly Respiratory normal respiratory effort, lungs clear to auscultation Cardiovascular RRR, no murmur, no edema Gastrointestinal (Abdomen) normal bowel sounds, soft, nontender, no hepatosplenomegaly Musculoskeletal no cyanosis or clubbing, extremities motor strength 5/5 Neurologic PERRL, EOMI, accommodation nl, no face palsy, no dysarthria Discharge Data Allergies Allergy/AdvReac Type Severity Reaction Status Date / Time peanut Allergy Unknown lethargic, Verified 05/18/22 18:18 GI upset pollen Allergy Unknown Unknown Uncoded 05/18/22 18:18 GENERAL ANESTHESIA AdvReac Intermediate Vomiting Uncoded 05/18/22 18:30 Consultations 05/18/22 17:51 ED Decision to Admit Stat Ordered Studies 05/18/22 19:04 CT Abd and Pelvis [CT abd pelvis wo con] Urgent Hospital Course (1) DKA (diabetic ketoacidosis): Diabetic Ketoacidosis - Hyperglycemia (415) - Partial DKA picture (elevated glucose, normal bicarb, high anion gap, pH 7.31, dehydrated) - Anion Gap 15 on presentation, resolved on recheck @ 1999 to 10 after 3 fluid boluses - Fluid Resuscitation + Insulin + Potassium (per DKA protocol) - Normosol 80 ml/hr, 1/2 NSS + 40 mEq q2h, Insulin IV titrate - DKA glucose goal 150-250 - Lactate 3.6 H - Ionized Ca 1.02 L, Mg 1.8 N, Hypophosphatemia 1.8 L (replete w/ KPhos, recheck in AM) - Follow Potassium via BMP On 05/19, patient was bidged. Anion gap closed. Blood sugar improved. Blood work normalized On 05/20 Patient remained asymptomatic. Patient will be discharged. Lower Abdominal Pain w/ Nausea & Vomiting: - Normal LFTs - Normal Lipase - CT Abd/Pelvis: liquid stool in colon, normal appendix, bilateral nephrolithiasis, cholelithiasis - Stool BioFire Pending Acute Kidney Injury - Likely 2/2 Dehydration - BUN 29 H/ Cr 2.08 (baseline 0.92) -resolved to creat: 0.85/ bun 15 Diabetes - See Above Hypertension - Held Losartan d/t YOANA Hyperlipidemia - Continue Rosuvastatin Sinusitis - Continue home Fluticasone propionate and Ipratropium bromide (2) Abdominal pain, vomiting, and diarrhea: (3) YOANA (acute kidney injury): (4) Diabetes: (5) HTN (hypertension): (6) Hyperlipidemia: (7) Sinusitis: Plan Fluids: Normosol 80 ml/hr Electrolytes: wnl, trend K d/t insulin Diet: NPO DVT Ppx: Heparin d/t YOANA Dispo: Med/Tele Total Time Total Time Spent Total Time Spent (In Minutes): 35 Discharge Plan Discharge Items Patient Disposition: Home - Self-Care Reason For Visit: HYPERGLYCEMIA/YOANA Discharge Diagnosis: Diabetes ketoacidosis Activity: Resume your previous activity Non-emergency contact: Primary Care Provider Call non-emergency contact if: you have any medication questions Follow-up/Referrals: Frantz Sanchez MD [Primary Care Provider] - 05/31/22 3:00 pm Diet: Carb Count or DM1 and Full liquid Addtl Attending Provider Instructions: You have been hospitalized for an acute medical problem. During your stay at [facility], we have made an effort to correct the problem that brought you to the hospital while keeping you as comfortable as possible. Medications were used to bring your condition under control and your discharge instructions will include directions for any medications you should take after leaving the hospital. Please make sure you see your Primary Care Provider as part of your follow up plan. Followup with PCP in 1-2 weeks Pending Studies at Discharge: No Stand-Alone Forms: My [facility], Smoking Cessation Medications and DC Order Prescriptions: Continued (DME) pen needle, diabetic [BD Ultra-Fine Mini Pen Needle] 31 gauge x 3/16" needle See Rx Instructions .ROUTE .MEDSUPPLY Qty: 300 3RF Rx Instructions: As directed to inject Lantus and Novolog, up to 3 times a day losartan 50 mg tablet 25 mg PO QAM Qty: 45 3RF fluticasone propionate 50 mcg/actuation spray,suspension 2 spray INTNAS QAM Qty: 16 11RF Rx Instructions: administer into each nostril ipratropium bromide 21 mcg (0.03 %) spray,non-aerosol 2 spray intranasal QAM Qty: 30 6RF Rx Instructions: administer into each nostril omega-3 fatty acids [Fish Oil Concentrate] 1,000 mg capsule 1,000 mg PO QAM Azo Cranberry 250 mg tablet,chewable 250 mg PO QAM multivitamin with iron tablet 1 tab PO QAM aspirin 81 mg Tablet,Delayed Release (Dr/Ec) 81 mg PO DAILY insulin glargine-yfgn [Semglee(insulin glarg-yfgn)Pen] 100 unit/mL (3 mL) insulin pen 0 unit SUBCUT QAM Rx Instructions: PER SLIDING SCALE No Action insulin aspart U-100 [Novolog Flexpen U-100 Insulin] 100 unit/mL (3 mL) insulin pen 1 sliding scale dose subcut USEASDIRECTD Discharge Orders: Discharge Order (Routine); Ordered 05/20/22 Ordered By: Denilson Montes De Oca/Other Patient Handouts: High Blood Sugar (Hyperglycemia), Diabetes: Sick-Day Plan Admission Data Admit Date/Time: 05/18/22 19:52 Attending Provider: Denilson Hardin Admit Provider: Ivette Beatty Primary Care Provider: Frantz Sanchez Other Providers: Denilson Hardin Other Interventions: Discharge Summary Assessment (RN) Last Done: 05/20/22 13:43 Coding Level of Care Code D/C DAY MANAGEMENT >30 MINS Diagnoses DKA (diabetic ketoacidosis) E11.10 Abdominal pain, vomiting, and diarrhea R10.9; R11.10; R19.7 YOANA (acute kidney injury) N17.9 Diabetes E11.9 HTN (hypertension) I10 Hyperlipidemia E78.5 Sinusitis J32.9
--- NOTE | 2022-05-26 10:14 | Billing Data ---
Date of Service May 18, 2022 Coding Level of Care Code 55606 Initial Inpt Care Lvl 3
== END 2022-05-20 16:00 | disposition home or self-care (01) | DRG 638 ==
LOC: ED 16:00 → 2N 19:52

== ENCOUNTER 2024-09-06 10:44 | Observation (INO) ==
--- NOTE | 2024-09-06 11:06 | Emergency Department Note ---
Impression & Plan Dizziness, Carotid artery occlusion, Hyperglycemia ED Provider Note NAME: TOAN CONROY AGE: 64 SEX: M : 1960 ARRIVES VIA: Walk-In INFORMANT: Patient ED PROVIDER(S): Sanchez Hammer DO CHIEF COMPLAINT: Nausea, unsteady on his feet HPI: Patient is a 64-year-old male with a past medical history of diabetes, hypertension, anxiety who presents to the ER following driving for dizziness.. While he was driving he felt really hot flushed and unsteady and this occurred around 10:15 AM. He could not walk. His drove him back to the hospital. On the way he notes any movement made it worse. Does not feel like things are spinning. He denies any change or loss of vision. No headache. No chest pain or shortness of breath. No focal weakness or numbness in the arms or legs. No dysuria, urgency, or frequency. He does have pain on the left side of the head associated with this. ADDITIONAL HISTORY OBTAINED: Per HPI Chronic Medical/Social Conditions Affecting Care: Per HPI PAST MEDICAL HISTORY:See Below PAST SURGICAL HISTORY:See Below FAMILY HISTORY:See Below SOCIAL HISTORY:See Below HOME MEDICATIONS:See Below ALLERGIES:See Below VITALS:See Below PHYSICAL EXAMINATION: GENERAL: Sitting up in bed, alert, well appearing, well nourished, no distress, non-toxic EYE EXAM: normal conjunctiva. PERRL and EOM's intact. OROPHARYNX: no exudate, no erythema, lips, buccal mucosa, and tongue normal and mucous membranes are moist NECK: supple, no nuchal rigidity, no adenopathy, non-tender LUNGS: Clear to auscultation. Normal chest wall mechanics HEART: no murmurs, S1 normal and S2 normal ABDOMEN: abdomen soft, non-tender, normo-active bowel sounds, no masses, no rebound or guarding. BACK: Back is symmetrical on inspection and there is no deformity, no midline tenderness, no CVA tenderness. SKIN: no rashes and no bruising UPPER EXTREMITIES: upper extremities are grossly normal. LOWER EXTREMITIES: No pitting edema. NEURO EXAM: Normal sensorium, cranial nerves II-XII intact, normal speech, no weakness of arms, no weakness of legs. No drift. [id number] intact. MEDICAL DECISION MAKING: Patient is a 64-year-old male who presents to the ER for dizziness. IV was established blood work was obtained. Labs show no significant leukocytosis or anemia. BMP was fairly unremarkable with the exception of a slightly elevated glucose at 200. LFTs bilirubin was unremarkable. UA was clean. 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 This was discussed with Dr. Velazco from [facility] neurology. He evaluated the patient. Recommended admission and a complete stroke workup including MRIs. Patient was updated bedside and expressed understanding. [facility] neurology did offer the patient TNK but the patient declined. Patient was admitted to the hospital for further workup. Again I do favor that this likely vertigo in nature. Consults/Care Managements Discussions: Per [facility] Triage Nursing notes reviewed. Limited review of prior medical records performed Vital Signs: reviewed and remarkable for HTN Differential diagnosis: Differential diagnosis includes etiologies such as benign positional vertigo, dehydration, hypovolemia, anemia, tumor, infection, hypoglycemia, electrolyte abnormalities, cardiac sources, intracerebral event, toxicologic, neurological, as well as others were entertained. ER treatment provided: See below Diagnostics interpreted by me include EKG and cardiac monitoring as listed below: -Cardiac Monitoring: An order was placed for continuous cardiac monitoring. The monitor shows a rate of 70 with sinus rhythm. -ECG: Sinus rhythm rate of 71 Normal axis No PVCs QTc 423 -Laboratory studies:Interpreted by me as stated above in MDM and shown below. Imaging studies: Xrays: As interpreted by me: Portable AP upright 1 view of the chest shows no focal infiltrate CTs show: CT angios of the head and neck as described above Procedures: None Critical Care: I have personally spent 32 minutes of critical care time in the direct management of this patient. This includes bedside care, interpretation of diagnostic studies, and testing, discussion with consultants, patient, and family members, and other required patient management activities. This 32 minutes is in excess of all separately billable procedures. Past Med/Surg History Problem List (Updated 09/06/24 @ 16:39 by Sanchez Hammer DO) Hyperglycemia (Acute) Carotid artery occlusion (Acute) Dizziness (Acute) DVT prophylaxis Vertigo Left-sided tinnitus Fatigue Diabetic retinopathy Diabetes mellitus with complication Impacted cerumen, left ear Synovitis of hip HTN (hypertension) Kidney disease Anxiety (Acute) Fatty liver disease, nonalcoholic (Acute) Hyperlipidemia (Acute) Incarcerated umbilical hernia (Acute) Intermittent palpitations (Acute) Obesity (Acute) Sinusitis Allergies Allergic rhinitis Cough Adverse anesthesia outcome nausea Chronic sinusitis, unspecified Chronic rhinitis Colon cancer screening Vitamin D deficiency Left leg pain Abdominal pain, vomiting, and diarrhea Medical History History of COVID-19 DKA (diabetic ketoacidosis) YOANA (acute kidney injury) Encounter for pre-operative examination Osteoarthritis Renal cyst DM type 2 (diabetes mellitus, type 2) PONV (postoperative nausea and vomiting) Diabetes Surgical History History of cystoscopy History of colonoscopy H/O inguinal hernia repair H/O umbilical hernia repair x2 H/O vasectomy H/O sinus surgery x2 History of ankle surgery right Family History Father Coronary arteriosclerosis Diabetes Gallbladder disease Hypertension Myocardial infarction Heart disease Unknown Coronary arteriosclerosis Gallbladder disease Myocardial infarction Breast cancer Kidney stones Sister Gallbladder disease Breast cancer Kidney stones COVID Lyme disease Mother Breast cancer Cancer Brother Kidney stones Other No family history of bleeding disorder Denies family history of Ovarian cancer Prostate cancer Hearing loss Colorectal cancer Stroke Asthma Social History Smoking Status: Never smoker Tobacco Type: Cigarettes Second Hand Exposure: No; Do You Dip or Chew Tobacco: No; Hx Alcohol Use: No Hx Substance Use: No Preferred Language: Malay Communication Ability: Effective Visual Impairment: No Limitations Hearing Ability: Normal Books Binder Required: No Beliefs That Will Affect Care: None marital status: Current Living Situation: Significant Other current occupational status: retired 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) Feels Safe at Home: Yes Childhood Exposure to Second-Hand Smoke: No Physical Activity Frequency: 5-6 Times per Week Seatbelt Use: always Assistive Devices: None Allergies Allergies Allergy/AdvReac Type Severity Reaction Status Date / Time peanut Allergy Unknown lethargic, Verified 09/06/24 13:52 GI upset pollen Allergy Unknown Unknown Uncoded 09/06/24 13:52 GENERAL ANESTHESIA AdvReac Intermediate Vomiting Uncoded 09/06/24 13:52 Home Meds Home Medications Medication Instructions Recorded Confirmed cranberry fruit concentrate 250 mg 250 mg PO QAM 04/23/19 09/06/24 chewable tablet (Azo Cranberry) multivitamin with iron 1 tab PO QAM 04/23/19 09/06/24 aspirin 81 mg tablet,delayed 81 mg PO DAILY 05/18/22 09/06/24 release GOLO 1 cap PO DAILY 09/06/24 09/06/24 cholecalciferol (vitamin D3) 25 50 mcg PO DAILY 09/06/24 09/06/24 mcg (1,000 unit) chewable tablet (Vitamin D3) omega-3 fatty acids 1,000 mg 1,000 mg PO DAILY 09/06/24 09/06/24 capsule Previous Rx's Medication Instructions Recorded pen needle, diabetic 31 gauge x #300 ea 03/16/2112/07" (BD Ultra-Fine Mini Pen Needle) fluticasone propionate 50 2 spray intranasal QAM #16 grams 11/24/21 mcg/actuation nasal spray,suspension Humalog KwikPen Insulin 100 5 - 20 unit (0.05 - 0.2 mL) subcut 10/10/23 unit/mL subcutaneous (insulin TID #15 mL lispro) rosuvastatin 10 mg tablet (Crestor) 10 mg PO DAILY #90 tabs 10/29/23 losartan 50 mg tablet 25 mg (1/2 x 50 mg) PO QAM #45 tabs 11/30/23 sildenafil 50 mg tablet 50 mg PO DAILY PRN sexual activity 04/17/24 #10 tabs Basaglar KwikPen U-100 Insulin 100 35 - 50 unit (0.35 - 0.5 mL) 05/22/24 unit/mL (3 mL) subcutaneous subcut QAM #15 mL (insulin glargine) Results & Data (ED) Vital Signs Vital Signs - 24 hr 09/06/24 10:53 09/06/24 11:06 09/06/24 11:10 Temperature 36.4 C L Temperature Source Oral Pulse Rate 78 72 Pulse Rate [Left Apical] 71 Pulse Rate from SpO2 Sensor Pulse Rhythm [Left Apical] Pulse Strength [Left Apical] Respiratory Rate 20 16 Respiratory Effort / Characteristics Non-Labored Spontaneous Non-Labored Spontaneous Respiratory Depth Normal Normal Respiratory Pattern Regular Regular Blood Pressure 180/92 H Blood Pressure [Right Arm] 168/103 H Blood Pressure Mean 121 Blood Pressure Mean [Right Arm] 124 Blood Pressure Position [Right Arm] Pulse Oximetry 97 16 L Oxygen Delivery Method Room Air Room Air Sepsis Recent Fever Within 48 Hours No Sepsis New/Unexplained Change in Mental Status N/A Sepsis Action Taken by Nursing No Action Required 09/06/24 13:00 09/06/24 15:00 09/06/24 15:24 Temperature Temperature Source Pulse Rate 71 Pulse Rate [Left Apical] 66 75 Pulse Rate from SpO2 Sensor 71 Pulse Rhythm [Left Apical] Regular Regular Pulse Strength [Left Apical] Normal Normal Respiratory Rate 20 16 13 Respiratory Effort / Characteristics Non-Labored Non-Labored Respiratory Depth Normal Normal Respiratory Pattern Regular Regular Blood Pressure Blood Pressure [Right Arm] 145/94 H 153/95 H Blood Pressure Mean Blood Pressure Mean [Right Arm] 111 114 Blood Pressure Position [Right Arm] Lying Lying Pulse Oximetry 94 96 92 Oxygen Delivery Method Room Air Room Air Room Air Sepsis Recent Fever Within 48 Hours Sepsis New/Unexplained Change in Mental Status Sepsis Action Taken by Nursing 09/06/24 15:30 Temperature Temperature Source Pulse Rate Pulse Rate [Left Apical] Pulse Rate from SpO2 Sensor Pulse Rhythm [Left Apical] Pulse Strength [Left Apical] Respiratory Rate Respiratory Effort / Characteristics Respiratory Depth Respiratory Pattern Blood Pressure 167/88 H Blood Pressure [Right Arm] Blood Pressure Mean 108 Blood Pressure Mean [Right Arm] Blood Pressure Position [Right Arm] Pulse Oximetry Oxygen Delivery Method Sepsis Recent Fever Within 48 Hours Sepsis New/Unexplained Change in Mental Status Sepsis Action Taken by Nursing Laboratory Data 09/06/24 11:05 09/06/24 11:05 Lab Results 09/06/24 09/06/24 09/06/24 Range/Units 11:05 11:13 14:01 WBC 5.09 (4.8-10.8) K/ul RBC 5.60 (4.70-6.10) M/uL Hgb 17.4 (14.0-18.0) g/dl POC Hgb 17.0 (14.0-18.0) g/dl Hct 50.3 (42.0-52.0) % POC Hct 50 (42-52) % MCV 89.8 (80.0-100.0) fL MCH 31.1 (25.0-34.0) pg MCHC 34.6 (32.0-36.0) g/dL RDW Std Deviation 40.8 (36.4-46.3) fL RDW Coeff of Sylvia 12.3 (11.5-14.5) % Plt Count 186 (130-400) K/uL MPV 10.4 (9.4-12.4) fL Immature Gran % (Auto) 0.4 % Neut % (Auto) 58.0 % Lymph % (Auto) 27.1 % Wright % (Auto) 10.4 % Eos % (Auto) 3.1 % Baso % (Auto) 1.0 % Neut # (Auto) 2.95 (1.40-6.50) K/uL Lymph # (Auto) 1.38 (1.20-3.40) K/uL Wright # (Auto) 0.53 (0.11-0.59) K/uL Eos # (Auto) 0.16 (0.00-0.50) K/uL Baso # (Auto) 0.05 (0.00-0.20) K/uL Immature Gran # (Auto) 0.02 (0.01-0.20) K/uL APTT 26 (21-31) Seconds PTT Ratio 1.0 POC Sodium 141 (135-144) mmol/L Sodium 139 (136-145) mmol/L POC Potassium 4.4 (3.3-5.0) mmol/L Potassium 4.4 (3.5-5.1) mmol/L POC Chloride 103 (101-112) mmol/L Chloride 104 (98-107) mmol/L Carbon Dioxide 29 (21-32) mmol/L POC Total CO2 27 (24-31) mmol/L Anion Gap 6 (3-11) POC Anion Gap 16.0 (16-25) mmol/L POC BUN 21 H (7-18) mg/dl BUN 20 (6-23) mg/dl Creatinine 0.97 (0.6-1.4) mg/dl POC Creatinine 1.0 (0.6-1.3) mg/dl Est Cr Clr Drug Dosing 90.0 ml/min eGFR 87.72 BUN/Creatinine Ratio 20.6 H (10-20) Glucose 204 H (70-99(Fasting)) mg/dl POC Glucose 173 H (70-99) mg/dl POC Glucose (other) 206 H (70-99) mg/dl Calcium 10.7 H (8.6-10.3) mg/dl POC Ioniz Calcium Nawaf 1.35 H (1.12-1.32) mmol/l Magnesium 1.8 (1.7-2.4) mg/dl Total Bilirubin 0.8 (0.2-1.0) mg/dl AST 20 (13-39) U/L ALT 25 (7-52) U/L Alkaline Phosphatase 76 (34-104) U/L Troponin I High Sens 5.7 (0-20) pg/ml Total Protein 7.9 (6.0-8.3) gm/dl Albumin 4.9 (3.4-5.0) gm/dl Globulin 3.0 (2.5-4.0) gm/dl Albumin/Globulin Ratio 1.6 (0.9-2) Urine Color Urine Appearance (Clear) Urine pH (4.5-7.5) Ur Specific Preston (1.000-1.030) Urine Protein (Negative) Urine Glucose (UA) (Negative) Urine Ketones (Negative) Urine Blood (Negative) Urine Nitrite (Negative) Urine Bilirubin (Negative) Urine Urobilinogen (Negative) Ur Leukocyte Esterase (Negative) 09/06/24 Range/Units Unknown WBC (4.8-10.8) K/ul RBC (4.70-6.10) M/uL Hgb (14.0-18.0) g/dl POC Hgb (14.0-18.0) g/dl Hct (42.0-52.0) % POC Hct (42-52) % MCV (80.0-100.0) fL MCH (25.0-34.0) pg MCHC (32.0-36.0) g/dL RDW Std Deviation (36.4-46.3) fL RDW Coeff of Sylvia (11.5-14.5) % Plt Count (130-400) K/uL MPV (9.4-12.4) fL Immature Gran % (Auto) % Neut % (Auto) % Lymph % (Auto) % Wright % (Auto) % Eos % (Auto) % Baso % (Auto) % Neut # (Auto) (1.40-6.50) K/uL Lymph # (Auto) (1.20-3.40) K/uL Wright # (Auto) (0.11-0.59) K/uL Eos # (Auto) (0.00-0.50) K/uL Baso # (Auto) (0.00-0.20) K/uL Immature Gran # (Auto) (0.01-0.20) K/uL APTT (21-31) Seconds PTT Ratio POC Sodium (135-144) mmol/L Sodium (136-145) mmol/L POC Potassium (3.3-5.0) mmol/L Potassium (3.5-5.1) mmol/L POC Chloride (101-112) mmol/L Chloride (98-107) mmol/L Carbon Dioxide (21-32) mmol/L POC Total CO2 (24-31) mmol/L Anion Gap (3-11) POC Anion Gap (16-25) mmol/L POC BUN (7-18) mg/dl BUN (6-23) mg/dl Creatinine (0.6-1.4) mg/dl POC Creatinine (0.6-1.3) mg/dl Est Cr Clr Drug Dosing ml/min eGFR BUN/Creatinine Ratio (10-20) Glucose (70-99(Fasting)) mg/dl POC Glucose (70-99) mg/dl POC Glucose (other) (70-99) mg/dl Calcium (8.6-10.3) mg/dl POC Ioniz Calcium Nawaf (1.12-1.32) mmol/l Magnesium (1.7-2.4) mg/dl Total Bilirubin (0.2-1.0) mg/dl AST (13-39) U/L ALT (7-52) U/L Alkaline Phosphatase (34-104) U/L Troponin I High Sens (0-20) pg/ml Total Protein (6.0-8.3) gm/dl Albumin (3.4-5.0) gm/dl Globulin (2.5-4.0) gm/dl Albumin/Globulin Ratio (0.9-2) Urine Color Yellow Urine Appearance Clear (Clear) Urine pH 5.5 (4.5-7.5) Ur Specific Preston 1.019 (1.000-1.030) Urine Protein Negative (Negative) Urine Glucose (UA) 2+ H (Negative) Urine Ketones Negative (Negative) Urine Blood Negative (Negative) Urine Nitrite Negative (Negative) Urine Bilirubin Negative (Negative) Urine Urobilinogen Negative (Negative) Ur Leukocyte Esterase Negative (Negative) Administered Medications Discontinued Medications Aspirin (Aspirin Chew 324 Mg) 324 mg PO NOW STA Stop: 09/06/24 13:37 Last Admin: 09/06/24 13:48 Dose: 324 mg Documented By: EDUARDO Clopidogrel Bisulfate (Clopidogrel Bisulfate 300 Mg Tab) 300 mg PO NOW STA Stop: 09/06/24 15:12 Last Admin: 09/06/24 15:27 Dose: 300 mg Documented By: VANDANA Gadobutrol (Gadobutrol 65ml Vial) 10 ml IV ONCE ONE Stop: 09/06/24 16:34 Last Admin: 09/06/24 16:33 Dose: 10 ml Documented By: ALIN Ioversol (Optiray 320 125ml) 119 ml IV ONCE ONE Stop: 09/06/24 11:37 Last Admin: 09/06/24 11:36 Dose: 119 ml Documented By: KASSY Meclizine HCl (Meclizine Hcl 25 Mg Tab) 25 mg PO NOW STA Stop: 09/06/24 11:07 Last Admin: 09/06/24 11:21 Dose: 25 mg Documented By: EDUARDO Ondansetron HCl (Ondansetron Inj 2 Mg/Ml 2 Ml Vial) 4 mg IV NOW STA Stop: 09/06/24 11:07 Last Admin: 09/06/24 11:21 Dose: 4 mg Documented By: EDUARDO Imaging Data Radiologist's Impression: Chest X-Ray 09/06/24 11:05 XR chest 1V portable CLINICAL HISTORY: neuro deficit, acute stroke suspected COMPARISON STUDY: Chest radiograph and chest CT November 22, 2022. FINDINGS: Lung volumes are diminished. There is no pneumothorax or pleural effusion. There is no consolidation to suggest pneumonia. There is mild cardiomegaly. IMPRESSION: No acute cardiopulmonary findings. ACT 112: Negative or not required by law. Electronically signed by: Suhas Nixon M.D. 09/06/2024 11:[address] 09/06/24 11:05 CT OF THE HEAD WITHOUT CONTRAST CLINICAL HISTORY: neuro deficit, acute stroke suspected COMPARISON STUDY: Head CT February 14, 2008. TECHNIQUE: Helical axial images of the head were obtained without IV contrast. Automated exposure control was utilized for the study. A dose lowering technique was utilized adhering to the principles of ALARA. FINDINGS: No acute intracranial hemorrhage, midline shift or mass effect is present. The ventricular system is unremarkable. The basal cisterns are patent. No extra-axial collections are present. There are no findings to suggest acute dural sinus thrombosis or acute territorial infarct. IMPRESSION: No acute intracranial findings. ACT 112: Negative or not required by law. Electronically signed by: Suhas Nixon M.D. 09/06/2024 11:51 AM Head CTA 09/06/24 11:05 CTA ANGIOGRAPHY OF THE HEAD CLINICAL HISTORY: neuro deficit, acute stroke suspected COMPARISON STUDY: Head CT February 14, 2008. TECHNIQUE: Helical axial images of the head were obtained following uneventful intravenous administration of 119 cc of Optiray. Sagittal and coronal reconstructions were viewed as well as maximal intensity projections on an independent 3-D workstation. Automated exposure control was utilized for the study. A dose lowering technique was utilized adhering to the principles of ALARA. CT DOSE: 1279.59 mGy.cm FINDINGS: The bilateral M1, M2, A1 and A2 segments are patent. There are moderate stenoses within the intracranial portion of the right vertebral artery. The distal cervical portion of the right vertebral artery is diminutive. Left vertebral artery is patent. No vessel cut off within the intracranial situation is present. There is no intracranial aneurysm. IMPRESSION: 1. No large vessel occlusion. No intracranial aneurysm. 2. Moderate stenoses within the intracranial portion of the right vertebral artery. Diminutive distal cervical portion of the right vertebral artery. This may be chronic/congenital. Although less likely, a right vertebral artery dissection would be difficult to exclude. ACT 112: Negative or not required by law. Electronically signed by: Suhas Nixon M.D. 09/06/2024 12:05 PM Neck CTA 09/06/24 11:05 CT ANGIOGRAPHY OF THE NECK WITH CONTRAST CLINICAL HISTORY: neuro deficit, acute stroke suspected COMPARISON STUDY: Chest CT November 22, 2022. Technique: CT angiography of the carotid and vertebral arteries was obtained using Optiray and 3D reconstruction on an independent workstation. NASCET criteria was utilized. Automated exposure control was utilized for the study. A dose lowering technique was utilized adhering to the principles of ALARA. Findings: Visualized portions of the lung apices are unremarkable. There is no cervical lymphadenopathy. The bilateral common carotid and cervical internal carotid arteries are patent. There is minimal plaque within the carotid bifurcations without stenosis. There is no aneurysm within the neck. The left vertebral artery is dominant and patent. No flow is identified within the proximal right vertebral artery. There is trace flow within the mid to distal cervical right vertebral artery. Moderate stenoses within the intracranial portion of the right vertebral artery are present. There was also no opacification of the proximal right vertebral artery on chest CT of November 22, 2022. IMPRESSION: 1. No flow within the proximal to mid right vertebral artery, as shown on chest CT of November 22, 2022. Minimal flow within the distal right vertebral artery with moderate stenoses within the intracranial portion of the right vertebral artery. These findings are age indeterminate findings are probably chronic given findings on prior chest CT. A right vertebral artery dissection is within the differential although considered less likely. 2. No stenoses within the bilateral common carotid or cervical internal carotid arteries. ACT 112: Negative or not required by law. Electronically signed by: Suhas Nixon M.D. 09/06/2024 12:01 PM Discharge Plan Visit Data Chief Complaint: Vertigo Stated Complaint: DIZZY, TROUBLE STANDING ED Provider: Sanchez Hammer Discharge Problem: Dizziness, Carotid artery occlusion, Hyperglycemia Forms Stand Alone Forms: [facility] Prescriptions Prescriptions: No Action (DME) pen needle, diabetic [BD Ultra-Fine Mini Pen Needle] 31 gauge x 3/16" needle See Rx Instructions .ROUTE .MEDSUPPLY Qty: 300 3RF Rx Instructions: As directed to inject Lantus and Novolog, up to 3 times a day fluticasone propionate 50 mcg/actuation spray,suspension 2 spray INTNAS QAM Qty: 16 11RF Rx Instructions: administer into each nostril insulin lispro [Humalog KwikPen Insulin] 100 unit/mL insulin pen 5 - 20 unit subcut TID Qty: 15 3RF Rx Instructions: as directed before meals; max of 50 units/day Replaces Novolog rosuvastatin [Crestor] 10 mg tablet 10 mg PO DAILY Qty: 90 3RF losartan 50 mg tablet 25 mg PO QAM Qty: 45 3RF sildenafil 50 mg tablet 50 mg PO DAILY PRN (Reason: sexual activity) Qty: 10 3RF insulin glargine [Basaglar KwikPen U-100 Insulin] 100 unit/mL (3 mL) insulin pen 35 - 50 unit subcut QAM Qty: 15 3RF Rx Instructions: as directed Replaces Semglee Azo Cranberry 250 mg tablet,chewable 250 mg PO QAM multivitamin with iron tablet 1 tab PO QAM aspirin 81 mg Tablet,Delayed Release (Dr/Ec) 81 mg PO DAILY omega-3 fatty acids 1,000 mg Capsule 1,000 mg PO DAILY cholecalciferol (vitamin D3) [Vitamin D3] 25 mcg (1,000 unit) Tablet,Chewable 50 mcg PO DAILY GOLO 1 cap PO DAILY Rx Instructions: OTC Diet pill Referrals Referrals: Frantz Sanchez MD [Primary Care Provider] - Discharge Problem: Carotid artery occlusion Qualifiers: Laterality: unspecified laterality Qualified Code(s): I65.29 - Occlusion and stenosis of unspecified carotid artery
[2024-09-06] MEDS: ONDANSETRON INJ 2 MG/ML 2 ML VIAL IV STA (11:21)
[2024-09-06] MEDS: MECLIZINE HCL 25 MG TAB PO STA (11:21)
[2024-09-06 11:25] LABS: Basophils # (auto) 0.05 K/uL (0.00-0.20); Eosinophils # (auto) 0.16 K/uL (0.00-0.50); Eosinophils % (auto) 3.1 %; Hematocrit (blood only) 50.3 % (42.0-52.0); Hemoglobin 17.4 g/dl (14.0-18.0); Immature Granulocytes # (auto) 0.02 K/uL (0.01-0.20); Immature Granulocytes % (auto) 0.4 %; Lymphocytes # (auto) 1.38 K/uL (1.20-3.40); Lymphocytes % (auto) 27.1 %; Mean Corpuscular Hemoglobin 31.1 pg (25.0-34.0); Mean Corpuscular Hgb Conc 34.6 g/dL (32.0-36.0); Mean Corpuscular Volume 89.8 fL (80.0-100.0); Mean Platelet Volume 10.4 fL (9.4-12.4); Monocytes # (auto) 0.53 K/uL (0.11-0.59); Monocytes % (auto) 10.4 %; Neutrophils # (auto) 2.95 K/uL (1.40-6.50); Platelet Count 186 K/uL (130-400); RDW Coefficient of Variation 12.3 % (11.5-14.5); RDW Standard Deviation 40.8 fL (36.4-46.3); White Blood Count 5.09 K/ul (4.8-10.8)
[2024-09-06 11:29] LABS: iSTAT Ionized Calcium 1.35 mmol/l (1.12-1.32); iSTAT Potassium 4.4 mmol/L (3.3-5.0)
[2024-09-06] MEDS: OPTIRAY 320 125ml IV ONE (11:36)
[2024-09-06 11:43] LABS: Albumin Globulin Ratio 1.6 (0.9-2); Albumin Level 4.9 gm/dl (3.4-5.0); BUN Creatinine Ratio 20.6 (10-20); Bilirubin,Total 0.8 mg/dl (0.2-1.0); Calcium 10.7 mg/dl (8.6-10.3); Magnesium 1.8 mg/dl (1.7-2.4); Potassium 4.4 mmol/L (3.5-5.1); Total Protein 7.9 gm/dl (6.0-8.3)
--- NOTE | 2024-09-06 11:44 | XRay Report ---
XR chest 1V portable CLINICAL HISTORY: neuro deficit, acute stroke suspected COMPARISON STUDY: Chest radiograph and chest CT November 22, 2022. FINDINGS: Lung volumes are diminished. There is no pneumothorax or pleural effusion. There is no cons olidation to suggest pneumonia. There is mild cardiomegaly. IMPRESSION: No acute cardiopulmonary findings. ACT 112: Negative or not required by law. Electronically signed by: Suhas Nixon M.D. 09/06/2024 11:43 AM
[2024-09-06 11:50] LABS: Troponin I High Sensitivity 5.7 pg/ml (0-20)
--- NOTE | 2024-09-06 11:54 | CT Scan Report ---
CT OF THE HEAD WITHOUT CONTRAST CLINICAL HISTORY: neuro deficit, acute stroke suspected COMPARISON STUDY: Head CT February 14, 2008. TECHNIQUE: Helical axial images of the head were obtained without IV contrast. Automated exposure con trol was utilized for the study. A dose lowering technique was utilized adhering to the principles o f ALARA. FINDINGS: No acute intracranial hemorrhage, midline shift or mass effect is present. The ventricular system is unremarkable. The basal cisterns are patent. No extra-axial collections are present. There are no findings to suggest acute dural sinus thrombosis or acute territorial infarct. IMPRESSION: No acute intracranial findings. ACT 112: Negative or not required by law. Electronically signed by: Suhas Nixon M.D. 09/06/2024 11:51 AM
[2024-09-06 11:55] LABS: Partial Thromboplastin Time 26 Seconds (21-31)
--- NOTE | 2024-09-06 12:03 | CT Scan Report ---
CT ANGIOGRAPHY OF THE NECK WITH CONTRAST CLINICAL HISTORY: neuro deficit, acute stroke suspected COMPARISON STUDY: Chest CT November 22, 2022. Technique: CT angiography of the carotid and vertebral arteries was obtained using Optiray and 3D rec onstruction on an independent workstation. NASCET criteria was utilized. Automated exposure control was utilized for the study. A dose lowering technique was utilized adhering to the principles of ALA RA. Findings: Visualized portions of the lung apices are unremarkable. There is no cervical lymphadenopat hy. The bilateral common carotid and cervical internal carotid arteries are patent. There is minimal plaque within the carotid bifurcations without stenosis. There is no aneurysm within the neck. The le ft vertebral artery is dominant and patent. No flow is identified within the proximal right vertebral artery. There is trace flow within the mid to distal cervical right vertebral artery. Moderate steno ses within the intracranial portion of the right vertebral artery are present. There was also no opac ification of the proximal right vertebral artery on chest CT of November 22, 2022. IMPRESSION: 1. No flow within the proximal to mid right vertebral artery, as shown on chest CT of November 22, 2022. Minimal flow within the distal right vertebral artery with moderate stenoses within the intracranial portion of the right vertebral artery. These findings are age indeterminate findings are probably chr onic given findings on prior chest CT. A right vertebral artery dissection is within the differential although considered less likely. 2. No stenoses within the bilateral common carotid or cervical internal carotid arteries. ACT 112: Negative or not required by law. Electronically signed by: Suhas Nixon M.D. 09/06/2024 12:01 PM
--- NOTE | 2024-09-06 12:08 | CT Scan Report ---
CTA ANGIOGRAPHY OF THE HEAD CLINICAL HISTORY: neuro deficit, acute stroke suspected COMPARISON STUDY: Head CT February 14, 2008. TECHNIQUE: Helical axial images of the head were obtained following uneventful intravenous administr ation of 119 cc of Optiray. Sagittal and coronal reconstructions were viewed as well as maximal inten sity projections on an independent 3-D workstation. Automated exposure control was utilized for the study. A dose lowering technique was utilized adhering to the principles of ALARA. CT DOSE: 1279.59 mGy.cm FINDINGS: The bilateral M1, M2, A1 and A2 segments are patent. There are moderate stenoses within the intracranial portion of the right vertebral artery. The distal cervical portion of the right vertebr al artery is diminutive. Left vertebral artery is patent. No vessel cut off within the intracranial s ituation is present. There is no intracranial aneurysm. IMPRESSION: 1. No large vessel occlusion. No intracranial aneurysm. 2. Moderate stenoses within the intracranial portion of the right vertebral artery. Diminutive distal cervical portion of the right vertebral artery. This may be chronic/congenital. Although less likely , a right vertebral artery dissection would be difficult to exclude. ACT 112: Negative or not required by law. Electronically signed by: Suhas Nixon M.D. 09/06/2024 12:05 PM
[2024-09-06 12:32] LABS: Appearance Urine Clear (Clear); Bilirubin Urine Negative (Negative); Blood Urine Negative (Negative); Color Urine Yellow; Glucose Urine UA 2+ (Negative); Ketones Urine Negative (Negative); Leukocyte Esterase Urine Negative (Negative); Nitrite Urine Negative (Negative); Protein Urine Negative (Negative); Specific Gravity Urine 1.019 (1.000-1.030); Urobilinogen Urine Negative (Negative); pH Urine 5.5 (4.5-7.5)
[2024-09-06] MEDS: ASPIRIN CHEW 324 MG PO STA (13:48)
--- NOTE | 2024-09-06 15:12 | History & Physical Report ---
Date of Service September 06, 2024 Assessment & Plan (1) Vertigo: Plan: The main differential for this would be an inner ear process such as what ENT was evaluating versus if his vertebral artery dissection was true and he was having cerebellar compromise. Given that his dizziness also seems to be reproducible sitting up with his chin to his chest, I suppose a positional vertigo would be on the differential as well, but obviously far less ominous. As it relates to the possible vertebral artery dissectionMRI brain will be quite helpful and that if it shows cerebellar strokes, it would be rather obvious that the vertebral artery dissection was culprit; at the same time if it is negative, it would not entirely rule out cerebellar TIAsbut given the continuous nature of his symptoms that would make it far less likely. In discussion with radiology, they also felt that an MRA would be helpful in distinguishing the truth versus artifact of this possible vertebral dissectionso this was ordered as well. In the meantime, given that cerebellar TIA/stroke is on the differential, and the mainstay of management would be dual antiplatelets, he is already been given aspirin in the ER, with his ABCD2 being greater than 4, adding Plavixwe discussed the risk benefit of empiric treatment of this and he agrees as it relates to possible inner earthe MRI of IAC that ENT had ordered has now been added to his list of studies orderedwe will follow-up on those resultsand if it seems to be very ENT specific, may need their assistance if all of the above is negative, then would consider positional vertigo as the lead differential, but given that the above carry far more weighty implications, would start with these (2) Diabetes mellitus with complication: Plan: last A1c was 9.0, fingersticks, basal bolus insulin, follow (3) Hyperlipidemia: Plan: by [place], lipids are more or less at goal for his risk; at the same time if he had a true dissection/stroke, would want to raise his rosuvastatin to at least 20 mg for outcomes data (4) DVT prophylaxis: Plan: ambulation for now, if his hospital stay becomes prolonged or he is unable to move much, then would add pharmacologic DVT prophylaxis History of Present Illness Chief Complaint: dizziness Primary Care Provider: Frantz Sanchez MD patient is a very pleasant 64-year-old male who presents with acute onset of dizziness. He does note a chronic problem of ringing in the ears and some neck pain and may be some intermittent dizziness for which she had just seen ENTthemanuel had set things in motion to get an MRI of his internal auditory canals and he was going to follow-up with them next week. Today he and his are traveling and he noted feeling sweaty and flushed, and abruptly dizzyhe does have a hard time quantifying the dizziness but does note that is much more of an unsteadiness or imbalance rather than anything samantha to a lightheadedness. Seems to be worse with movement but is also fairly constant. He was driving so he pulled the car over to let his take over. Whenever he tried to get out from the yard truck driver side to the passenger side he felt like he was going to fallfelt a very significant imbalance as well as an overall weakness. On focal/directed questioning he denied any focal numbness or weaknessmore feeling and overall imbalance and weakness all over. Whenever she was driving, they decided that they needed to come back for hospital evaluationduring that time he continued to feel this imbalance and unsteadiness as well as left facial numbness or tingling some ear pain and some left-sided neck pain. He notes all of these symptoms seem to be chronic but were way more intense than his normal chronic ear pressure/symptoms, neck pain and facial tingling, and the imbalance seems to be overall newalthough he had had brief episodes of the dizziness before but nothing at all like this. He still has the symptoms ongoing whenever I see him. No other symptoms at all. Does note family history of early vascular disease. Allergies Allergy/AdvReac Type Severity Reaction Status Date / Time peanut Allergy Unknown lethargic, Verified 09/06/24 13:52 GI upset pollen Allergy Unknown Unknown Uncoded 09/06/24 13:52 GENERAL ANESTHESIA AdvReac Intermediate Vomiting Uncoded 09/06/24 13:52 Home Medications Medication Instructions Recorded Confirmed Type cranberry fruit concentrate 250 mg 250 mg PO QAM 04/23/19 09/06/24 History chewable tablet (Azo Cranberry) multivitamin with iron 1 tab PO QAM 04/23/19 09/06/24 History pen needle, diabetic 31 gauge x #300 ea 03/16/21 09/02/24 Rx 3/16" (BD Ultra-Fine Mini Pen Needle) fluticasone propionate 50 2 spray intranasal QAM #16 grams 11/24/21 09/06/24 Rx mcg/actuation nasal spray,suspension aspirin 81 mg tablet,delayed 81 mg PO DAILY 05/18/22 09/06/24 History release Humalog KwikPen Insulin 100 5 - 20 unit (0.05 - 0.2 mL) subcut 10/10/23 09/06/24 Rx unit/mL subcutaneous (insulin TID #15 mL lispro) rosuvastatin 10 mg tablet (Crestor) 10 mg PO DAILY #90 tabs 10/29/23 09/06/24 Rx losartan 50 mg tablet 25 mg (1/2 x 50 mg) PO QAM #45 tabs 11/30/23 09/06/24 Rx sildenafil 50 mg tablet 50 mg PO DAILY PRN sexual activity 04/17/24 09/06/24 Rx #10 tabs Basaglar KwikPen U-100 Insulin 100 35 - 50 unit (0.35 - 0.5 mL) 05/22/24 09/06/24 Rx unit/mL (3 mL) subcutaneous subcut QAM #15 mL (insulin glargine) GOLO 1 cap PO DAILY 09/06/24 09/06/24 History cholecalciferol (vitamin D3) 25 50 mcg PO DAILY 09/06/24 09/06/24 History mcg (1,000 unit) chewable tablet (Vitamin D3) omega-3 fatty acids 1,000 mg 1,000 mg PO DAILY 09/06/24 09/06/24 History capsule Past Med/Surg History Problem List (Updated 09/06/24 @ 16:28 by Sanchez Delarosa DO) DVT prophylaxis Vertigo Left-sided tinnitus Fatigue Diabetic retinopathy Diabetes mellitus with complication Impacted cerumen, left ear Synovitis of hip HTN (hypertension) Kidney disease Anxiety (Acute) Fatty liver disease, nonalcoholic (Acute) Hyperlipidemia (Acute) Incarcerated umbilical hernia (Acute) Intermittent palpitations (Acute) Obesity (Acute) Sinusitis Allergies Allergic rhinitis Cough Adverse anesthesia outcome nausea Chronic sinusitis, unspecified Chronic rhinitis Colon cancer screening Vitamin D deficiency Left leg pain Abdominal pain, vomiting, and diarrhea Medical History History of COVID-19 DKA (diabetic ketoacidosis) YOANA (acute kidney injury) Encounter for pre-operative examination Osteoarthritis Renal cyst DM type 2 (diabetes mellitus, type 2) PONV (postoperative nausea and vomiting) Diabetes Surgical History History of cystoscopy History of colonoscopy H/O inguinal hernia repair H/O umbilical hernia repair x2 H/O vasectomy H/O sinus surgery x2 History of ankle surgery right Family History Father Coronary arteriosclerosis Diabetes Gallbladder disease Hypertension Myocardial infarction Heart disease Unknown Coronary arteriosclerosis Gallbladder disease Myocardial infarction Breast cancer Kidney stones Sister Gallbladder disease Breast cancer Kidney stones COVID Lyme disease Mother Breast cancer Cancer Brother Kidney stones Other No family history of bleeding disorder Denies family history of Ovarian cancer Prostate cancer Hearing loss Colorectal cancer Stroke Asthma Social History Smoking Status: Never smoker Tobacco Type: Cigarettes Second Hand Exposure: No; Do You Dip or Chew Tobacco: No; Hx Alcohol Use: No Hx Substance Use: No Preferred Language: Bulgarian Communication Ability: Effective Visual Impairment: No Limitations Hearing Ability: Normal 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 HEENT normocephalic atraumatic mucous membranes moist. Musculoskeletal shows his left suboccipitals and left neck to be a little bit tender, although not a lot of high tone musculature. Ears appear normal/TMs appear normal bilaterally. Neck is supple. Cardio regular without rubs murmurs or gallops. Lungs clear to auscultation bilaterally no rales rhonchi or wheeze with good effort. Abdomen is soft. Extremities without sinus clubbing or edema, no calf tenderness. Neuro shows cranial nerves II through XII be grossly intact, gross motor and sensory are equal and intact, motor 5 out of 5 equal bilateral upper and lower extremities. No focal findings. Of note, whenever I have him sit up and especially sit up and lean forward it does seem to cause his dizziness/unsteadiness, although I do not see/cannot cause nystagmus with this. Again seems to be most provoked whenever he is sitting up with his chin to his chest and may be slightly to the right. Results & Data Results & Data Vital Signs (Past 12 Hours) Vital Signs Temp Pulse Pulse Resp BP BP Pulse Ox 09/06/24 15:00 75 16 153/95 H 96 09/06/24 13:00 66 20 145/94 H 94 09/06/24 11:10 71 16 168/103 H 16 L 09/06/24 11:06 72 09/06/24 10:53 97.5 F L 78 20 180/92 H 97 O2 Del Method 09/06/24 15:00 Room Air 09/06/24 13:00 Room Air 09/06/24 11:10 Room Air 09/06/24 11:06 09/06/24 10:53 Room Air PG Care Time/CCT Total # of Minutes Spent Total Time Spent with Patient: Total time spent is greater than 50% in coordination of care (as documented) at patient's floor/unit and/or counseling patient: Coding Level of Care Code 31594 INT INP/OBS CARE 3/75MIN Diagnoses Vertigo R42 Diabetes mellitus with complication E11.8 Hyperlipidemia E78.5 DVT prophylaxis Z29.9
[2024-09-06] MEDS: CLOPIDOGREL BISULFATE 300 MG TAB PO STA (15:27)
[2024-09-06] MEDS: GADOBUTROL 65ML VIAL IV ONE (16:33)
[2024-09-06] MEDS ORDERED: NON-FORMULARY MEDICATION (Sildenafil 50 mg tablet) PO PRN (17:06)
[2024-09-06] MEDS ORDERED: POLYETHYLENE (MIRALAX) 17 GM PACK PO PRN (17:06)
[2024-09-06] MEDS ORDERED: MAGNESIUM HYDROXIDE SUSP 30 ML UDC PO PRN (17:06)
[2024-09-06] MEDS ORDERED: ONDANSETRON INJ 2 MG/ML 2 ML VIAL IV PRN (17:06)
[2024-09-06] MEDS ORDERED: ACETAMINOPHEN 325 MG TAB PO PRN (17:06)
[2024-09-06] MEDS ORDERED: ALUMINUM/MAGNESIUM SUSP 30 ML UDC PO PRN (17:06)
--- NOTE | 2024-09-06 17:53 | Magnetic Resonance Report ---
EXAM: MR brain IAC wo/w con CLINICAL HISTORY: PT STATES TODAY BEGAN FEELING DIZZY AND SWEATY. PAIN LEFT SIDE BACK ON NECK UP INTO HEAD AND IN LEFT SIDE OF FACE. NO PRIOR SURGERY. NO HX OF CANCER. NO HX OF STROKE OR HEAD TRAUMA. GFR 87.72 09/06/24. TECHNIQUE: MRI of the brain was performed without and with contrast with multiplanar sequences obtained. 10 cc gadavist wasnadministered. COMPARISON: No previous studies are available for comparison. FINDINGS: Brain Parenchyma: No evidence of acute infarction or hemorrhage. Normal carranza-white matter differentiation. No mass lesions or focal cortical abnormalities identified. Few tiny globule high T2 signal seen in the right frontal and right parietal white matter. No abnormal postcontrast enhancement. Ventricles and Sulci: Normal size and configuration of the lateral ventricles, third ventricle, and fourth ventricle. No evidence of hydrocephalus or ventriculomegaly. Sylvian fissures, sulci, and cisterns are within normal limits. Posterior Fossa: Cerebellum and brainstem appear normal without evidence of mass lesions or signal abnormalities. Cranial Nerves: Normal course and appearance of cranial nerves identified. Vessels: No evidence of vascular malformations or aneurysms. Intracranial arteries and veins appear normal without evidence of stenosis or occlusion. Orbits and Skull Base: Orbits and skull base structures are normal without evidence of abnormalities. IMPRESSION: 1. No acute intracranial abnormalities. 2. Few tiny nonspecific white matter foci. Electronically signed by Kaitlyn Coleman 09-06-2024 5:52 PM
--- NOTE | 2024-09-06 18:00 | Magnetic Resonance Report ---
EXAM: MR angio neck wo/w con CLINICAL HISTORY: PT STATES TODAY BEGAN FEELING DIZZY AND SWEATY. PAIN LEFT SIDE BACK ON NECK UP INTO HEAD AND IN LEFT SIDE OF FACE. NO PRIOR SURGERY. NO HX OF CANCER. NO HX OF STROKE OR HEAD TRAUMA. TECHNIQUE: Multiplanar, multi-echo MRI sequences were taken through the neck without and with intravenous contrast administration. 10 cc gadavist was administered intravenously. Images were sent through PACS for diagnostic interpretation. COMPARISON: None. FINDINGS: Major Neck Vessels: The common carotid, internal and external carotid arteries are patent bilaterally and of average caliber. The left vertebral aretry is patent and of average caliber. The right vertebral artery is not seen throughout most of its course. Limited images through the neck structures revealed no gross abnormality. IMPRESSION: Nonvisualization of the right vertebral artery which could be hypoplastic. Further evaluation by CT angiography is advised to rule out other possibilites. Electronically signed by Kaitlyn Coleman 09-06-2024 6:00 PM
[2024-09-06] MEDS: INSULIN ASPART PER UNIT CHARGE SC SCH (18:06)
[2024-09-06] MEDS: LANTUS PER UNIT CHARGE SQ SCH (20:41)
[2024-09-06 21:26] VITALS: RESP 18
[2024-09-07 07:17] VITALS: TEMP 98.1; O2SAT 95
--- NOTE | 2024-09-07 07:39 | Hospitalist Progress Note ---
Date of Service September 07, 2024 Assessment & Plan (1) Vertigo: Plan: The main differential for this would be an inner ear process such as what ENT was evaluating versus if his vertebral artery dissection was true and he was having cerebellar compromise. Given that his dizziness also seems to be reproducible sitting up with his chin to his chest, I suppose a positional vertigo would be on the differential as well, but obviously far less ominous. As it relates to the possible vertebral artery dissectionMRI brain will be quite helpful and that if it shows cerebellar strokes, it would be rather obvious that the vertebral artery dissection was culprit; at the same time if it is negative, it would not entirely rule out cerebellar TIAsbut given the continuous nature of his symptoms that would make it far less likely. In discussion with radiology, they also felt that an MRA would be helpful in distinguishing the truth versus artifact of this possible vertebral dissectionso this was ordered as well. In the meantime, given that cerebellar TIA/stroke is on the differential, and the mainstay of management would be dual antiplatelets, he is already been given aspirin in the ER, with his ABCD2 being greater than 4, adding Plavixwe discussed the risk benefit of empiric treatment of this and he agrees as it relates to possible inner earthe MRI of IAC that ENT had ordered has now been added to his list of studies orderedwe will follow-up on those resultsand if it seems to be very ENT specific, may need their assistance if all of the above is negative, then would consider positional vertigo as the lead differential, but given that the above carry far more weighty implications, would start with these (2) Diabetes mellitus with complication: Plan: last A1c was 9.0, fingersticks, basal bolus insulin, follow (3) Hyperlipidemia: Plan: by [place], lipids are more or less at goal for his risk; at the same time if he had a true dissection/stroke, would want to raise his rosuvastatin to at least 20 mg for outcomes data (4) DVT prophylaxis: Plan: ambulation for now, if his hospital stay becomes prolonged or he is unable to move much, then would add pharmacologic DVT prophylaxis Admission and Anticipated Discharge Date Admission Date: September 06, 2024 Results & Data Results & Data Vital Signs (Past 12 Hours) Vital Signs Temp Pulse Pulse Resp BP BP Pulse Ox 09/07/24 07:17 36.7 C 68 18 123/74 95 09/07/24 04:02 36.5 C 62 18 130/70 92 09/06/24 23:00 73 09/06/24 19:56 36.8 C 62 18 105/63 93 O2 Del Method 09/07/24 07:17 Room Air 09/07/24 04:02 Room Air 09/06/24 23:00 09/06/24 19:56 Room Air
[2024-09-07] MEDS ORDERED: NON-FORMULARY MEDICATION (Cranberry Fruit Concentrate [Azo Cranberry] 250 mg tablet,chewab PO SCH (09:00)
[2024-09-07] MEDS ORDERED: GOLO PO SCH (09:00)
[2024-09-07] MEDS: ASPIRIN 81 MG ECTAB PO SCH (09:13)
[2024-09-07] MEDS: CHOLECALCIFEROL 25 MCG (1000 UNITS) TAB PO SCH (09:13)
[2024-09-07] MEDS: OMEGA-3 (PURIFIED FISH OIL) 1 GM CAP PO SCH (09:14)
[2024-09-07] MEDS: FLUTICASONE PROPIONATE NA SPR 16 GM BTL NAE SCH (09:14)
[2024-09-07] MEDS: MULTIVITAMIN TAB PO SCH (09:14)
[2024-09-07] MEDS: ROSUVASTATIN CALCIUM 10 MG TAB PO SCH (09:15)
[2024-09-07] MEDS: CLOPIDOGREL BISULFATE 75 MG TAB PO SCH (09:15)
[2024-09-07] MEDS: LOSARTAN POTASSIUM 25 MG TAB PO SCH (09:15)
--- NOTE | 2024-09-07 13:15 | Discharge Summary ---
Date of Service September 07, 2024 Admission HPI Per Admitting Provider patient is a very pleasant 64-year-old male who presents with acute onset of dizziness. He does note a chronic problem of ringing in the ears and some neck pain and may be some intermittent dizziness for which she had just seen ENTthey had set things in motion to get an MRI of his internal auditory canals and he was going to follow-up with them next week. Today he and his are traveling and he noted feeling sweaty and flushed, and abruptly dizzyhe does have a hard time quantifying the dizziness but does note that is much more of an unsteadiness or imbalance rather than anything samantha to a lightheadedness. Seems to be worse with movement but is also fairly constant. He was driving so he pulled the car over to let his take over. Whenever he tried to get out from the driver material handler side to the passenger side he felt like he was going to fallfelt a very significant imbalance as well as an overall weakness. On focal/directed questioning he denied any focal numbness or weaknessmore feeling and overall imbalance and weakness all over. Whenever she was driving, they decided that they needed to come back for hospital evaluationduring that time he continued to feel this imbalance and unsteadiness as well as left facial numbness or tingling some ear pain and some left-sided neck pain. He notes all of these symptoms seem to be chronic but were way more intense than his normal chronic ear pressure/symptoms, neck pain and facial tingling, and the imbalance seems to be overall newalthough he had had brief episodes of the dizziness before but nothing at all like this. He still has the symptoms ongoing whenever I see him. No other symptoms at all. Does note family history of early vascular disease. Admission Exam Per Admitting Provider Physical Exam: In general he is awake alert oriented pleasant no distress. HEENT normocephalic atraumatic mucous membranes moist. Musculoskeletal shows his left suboccipitals and left neck to be a little bit tender, although not a lot of high tone musculature. Ears appear normal/TMs appear normal bilaterally. Neck is supple. Cardio regular without rubs murmurs or gallops. Lungs clear to auscultation bilaterally no rales rhonchi or wheeze with good effort. Abdomen is soft. Extremities without sinus clubbing or edema, no calf tenderness. Neuro shows cranial nerves II through XII be grossly intact, gross motor and sensory are equal and intact, motor 5 out of 5 equal bilateral upper and lower extremities. No focal findings. Of note, whenever I have him sit up and especially sit up and lean forward it does seem to cause his dizziness/unsteadiness, although I do not see/cannot cause nystagmus with this. Again seems to be most provoked whenever he is sitting up with his chin to his chest and may be slightly to the right. Principal Diagnosis vertebral artery stenosis Discharge Exam Constitutional WD/WN, vitals as above Respiratory normal respiratory effort, lungs clear to auscultation Cardiovascular RRR, no murmur, no edema Skin no rashes, warm and dry Neurologic PERRL, EOMI, accommodation nl, no face palsy, no dysarthria Psychiatric A+Ox3, euthymic affect Discharge Data Allergies Allergy/AdvReac Type Severity Reaction Status Date / Time peanut Allergy Unknown lethargic, Verified 09/06/24 13:52 GI upset pollen Allergy Unknown Unknown Uncoded 09/06/24 13:52 GENERAL ANESTHESIA AdvReac Intermediate Vomiting Uncoded 09/06/24 13:52 Consultations 09/06/24 13:36 ED Decision to Admit Stat Ordered Studies 09/06/24 11:05 CT angio head w con Stat CT angio neck with con Stat CT head/brain wo con Stat 09/06/24 15:09 MR brain IAC wo/w con Stat 09/06/24 15:10 MR angio neck wo/w con Stat Hospital Course (1) Vertebral artery stenosis: (2) Vertigo: (3) Diabetes mellitus with complication: (4) Hyperlipidemia: (5) DVT prophylaxis: Plan #Vertebral Artery Stenosis, Right: - Constellation of presenting symptoms with mix of acute sx (sudden onset diffuse weakness, impaired balance - resolved) and chronic (left-sided tinnitus, left occipital/neck pain, feeling of recurrent, brief syncope-like events) do not appear to have a single unifying diagnosis - Extensive imaging work up included negative CT head, CTA head/neck with moderate stenoses within intracranial portion of right vertebral artery + diminutive cervical portion of right vertebral artery (chronic/congenital vs less likely vertebral artery dissection), MRI brain/internal auditory canal negative - Acute symptoms resolved, stroke ruled out - recommend continued work up as outpatient. Considerations: ?possibility of transient hypotension leading to brief episodes of cerebral hypoperfusion - recommend that patient monitor home BP, review logs with PCP - in the interim, continue Losartan 25mg daily. - Patient reported sx concerning for ASHLEY - consider sleep study as outpatient - Follow up with outpatient ENT for ongoing work up of tinnitus/?peripheral vertigo Total Time Total Time Spent Total Time Spent (In Minutes): see attending attestation Discharge Plan Discharge Items Patient Disposition: Home - Self-Care Reason For Visit: VERTIGO Discharge Diagnosis: vertebral artery stenosis Activity: Resume your previous activity Non-emergency contact: Primary Care Provider Call non-emergency contact if: you have any medication questions and your symptoms worsen Follow-up/Referrals: Frantz Sanchez MD [Primary Care Provider] - Diet: Carb Consistent or DM2 and Heart Healthy Addtl Attending Provider Instructions: You were admitted to the hospital to rule out stroke and to try to ascertain the underlying cause for your symptoms. You had multiple tests done, including a CT angiogram of your head and neck and an MRI of the brain + internal auditory canals. Based on these scans, we were able to determine that you did not have a stroke. The main thing that stood out was that your right vertebral artery showed some narrowing as it enters the skull. However, it appears that this is a chronic finding and is not new. The MRI of your brain and internal auditory canals was grossly normal. Based on this, our thought is that your symptoms may not all be explained by one unifying diagnosis. Rather, they are more likely separate etiologies. We recommend following up with your primary care doctor and outpatient ENT for ongoing work up. In the interim, please monitor your blood pressure at home and bring a log of your blood pressure readings to your next doctor's appointment. A discharge summary will be sent to your primary care physician to ensure continuity of care. Please bring this discharge summary with you to your next office appointment so that your provider can review it at that time. Medications: Your medication list has been reviewed and reconciled upon discharge to ensure accuracy and continuity of care. An updated list of all your medications is included with your hospital discharge paperwork. Please review this list closely and make note of any changes to your medications. - No changes were made to your home medications; please continue to take them as previously directed. Follow up appointments: - Make a follow up appointment with your PCP within the next week. It is very important that you follow up with them shortly after discharge from the hospital. - Keep all of your follow up appointments as already scheduled. If you cannot make an appointment, notify your provider. CONTACT YOUR PRIMARY CARE PROVIDER if you experience any of the following: - Difficulty following your treatment plan - Difficulty taking any of your medications CALL 911 OR GO TO THE EMERGENCY DEPARTMENT if you experience any of the following: - Sudden, severe abdominal pain or nausea/vomiting - Severe chest pain or chest pain that radiates to your jaw or arm - Sudden, severe shortness of breath or difficulty breathing Pending Studies at Discharge: No Stand-Alone Forms: My [facility] [employer], Smoking Cessation Medications and DC Order Prescriptions: Continued (DME) pen needle, diabetic [BD Ultra-Fine Mini Pen Needle] 31 gauge x 3/16" needle See Rx Instructions .ROUTE .MEDSUPPLY Qty: 300 3RF Rx Instructions: As directed to inject Lantus and Novolog, up to 3 times a day fluticasone propionate 50 mcg/actuation spray,suspension 2 spray INTNAS QAM Qty: 16 11RF Rx Instructions: administer into each nostril insulin lispro [Humalog KwikPen Insulin] 100 unit/mL insulin pen 5 - 20 unit subcut TID Qty: 15 3RF Rx Instructions: as directed before meals; max of 50 units/day Replaces Novolog rosuvastatin [Crestor] 10 mg tablet 10 mg PO DAILY Qty: 90 3RF losartan 50 mg tablet 25 mg PO QAM Qty: 45 3RF sildenafil 50 mg tablet 50 mg PO DAILY PRN (Reason: sexual activity) Qty: 10 3RF insulin glargine [Basaglar KwikPen U-100 Insulin] 100 unit/mL (3 mL) insulin pen 35 - 50 unit subcut QAM Qty: 15 3RF Rx Instructions: as directed Replaces Semglee Azo Cranberry 250 mg tablet,chewable 250 mg PO QAM multivitamin with iron tablet 1 tab PO QAM aspirin 81 mg Tablet,Delayed Release (Dr/Ec) 81 mg PO DAILY omega-3 fatty acids 1,000 mg Capsule 1,000 mg PO DAILY cholecalciferol (vitamin D3) [Vitamin D3] 25 mcg (1,000 unit) Tablet,Chewable 50 mcg PO DAILY GOLO 1 cap PO DAILY Rx Instructions: OTC Diet pill Discharge Orders: Discharge Order (Routine); Ordered 12/15/24 Ordered By: Duncan Cam Admission Data Admit Date/Time: 09/06/24 15:09 Attending Provider: Aspen Salazar Admit Provider: Sanchez Delarosa Primary Care Provider: Frantz Sanchez Other Providers: Sanchez Delarosa Other Interventions: Discharge Summary Assessment (RN) Last Done: 09/07/24 13:24 Supervising Physician Co-Signing Physician Notes Attending Physician Supervision Note: I independently interviewed and examined the patient and verified the max history and physical, reviewed labs and image studies and agree with findings and care plan noted above. 64 y/o M admitted to rule out stroke for symptoms of left face paresthesia, neck pain, dizzi spell and feeling unstable. CT head - Negative, CTA neck - Right vertebral artery stenosis - chronic. MRI internal auditory canal - no abnormality. No acute infarction in brain tissue. Kept on Telemetry - No arrhythmia noted. A BP reading noted to be lower into 100s systolic. Suspect that as the etiology of dizzi spell. Discussed stopping or cutting losartan into half. Check BP readings at home and take to PCP next week. Also has significant history of snoring - should get sleep study for daytime sleepiness likely presenting as seconds of dizzi spells while driving. Consider Echo as outpatient. f/u with PCP in one week. Keep appt with ENT
[2024-09-07 13:26] VITALS: BP 105/63; PULSE 72
--- NOTE | 2024-09-08 05:49 | Electrocardiogram Report ---
Test Reason : Blood Pressure : */* mmHG Vent. Rate : 71 BPM Atrial Rate : 71 BPM P-R Int : 156 ms QRS Dur : 86 ms QT Int : 390 ms P-R-T Axes : 75 1 54 degrees QTcB Int : 423 ms Normal sinus rhythm Normal ECG When compared with ECG of 22-Nov-2022 05:32, No significant change was found Confirmed by Hussain Garza ([id number]) on 09/08/2024 5:48:41 AM Referred By: REFERRED SELF Confirmed By: Hussain Garza
== END 2024-09-07 13:58 | disposition home or self-care (01) ==
LOC: ED 10:44 → 2E 10:44 → SUATTDRO 15:09 → 2E 17:06